=== PATIENT | male | born 1970 | race Caucasian/White ===

== ENCOUNTER → 2023-07-28 06:10 | Outpatient (REF) | payer BC, SELFPAY ==
[2023-07-28 09:43] LABS: ALT (SGPT) 29 U/L (0-50); AST (SGOT) 22 U/L (17-59); Albumin 4.3 g/dl (3.5-5.0); Alkaline Phosphatase 91 U/L (38-126); Blood Urea Nitrogen 12 mg/dl (9-20); Calcium 10.6 mg/dl (8.4-10.2); Carbon Dioxide 24 mmol/L (22-30); Chloride 103 mmol/L (98-107); Glucose 224 mg/dl (70-99); HDL Cholesterol 49 mg/dl; LDL Cholesterol, Calculated 47 mg/dl; Potassium 4.5 mmol/L (3.5-5.1); Sodium 138 mmol/L (135-145); Total Bilirubin 0.8 mg/dl (0.2-1.3); Total Cholesterol 125 mg/dl (50-199); Total Protein 7.8 g/dl (6.3-8.2); Triglyceride 147 mg/dl (10-149); Very Low Density Lipoprotein 29 mg/dl (0-30); eGFR > 60.00
[2023-07-28 09:52] LABS: Intact PTH 109.3 pg/ml (13.6-85.8)
[2023-07-28 11:04] LABS: Microalbumin, Random Urine 6.3 mg/dl (0.6-1.7); Microalbumin/creatinine Ratio 63.9 mg/g
[2023-07-28 13:20] LABS: Glycohemoglobin (HgbA1c) 8.6 % (4.0-5.6)
== END ==
LOC: HWLAB 06:10
PROVIDERS: ATTENDING PHYSICIAN Emergency Medicine
DX: E78.2 Mixed hyperlipidemia (principal); E11.69 Type 2 diabetes mellitus with other specified complication; E66.01 Morbid (severe) obesity due to excess calories; I10 Essential (primary) hypertension; E83.52 Hypercalcemia
CPT/HCPCS: 36415; 80053; 80061; 82043; 82570; 83036; 83970

== ENCOUNTER 2023-09-18 10:34 | Inpatient (IN) | payer BC, SELFPAY ==
[2023-09-17] VITALS (7 sets, daily range): BP systolic 123–148; BP diastolic 61–101; BMI 45.7
--- NOTE | 2023-09-17 07:48 | ED.GENMED ---
History of Present Illness
General
Chief Complaint: Abdominal Pain
Source: patient
Exam Limitations: none
Time Seen by Provider: 09/17/23 07:31
Travel History
Have you had any contact with someone who has COVID-19?: No
Do you have any symptoms of coronavirus? Fever > 100 degrees, chills, cough, shortness of breath, sore throat, loss of taste or smell, muscle aches, or headache?: No
History of Present Illness
History of Present Illness:
52-year-old male loj-[id number] diabetic presents complaining of progressively worsening abdominal discomfort some nausea over the past month. He is on semaglutide. His dose recently increased. He has a history of kidney stones. He also
notes pain in his left groin that is a constant ache. No fever. No chest pain or shortness of breath. He has a continuous glucose monitor hidden and his sugars have been okay lately. He notes weight loss with the semaglutide. No other
complaints at this time
Past History
Past History
ED Past Medical History: Other (Pre Diabetic, Plantar fasciitis, Bone spurs)
ED Past Surgical History: Appendectomy
Social History
Tobacco: Non-smoker
Alcohol: None
Personal:
Living: with family
Phy Exam
Physical Exam
Physical Exam:
General: Obese male no acute respiratory distress nontoxic
HEENT: Normocephalic atraumatic
Heart: Regular rate and rhythm
Lungs: Clear no wheeze
Abdomen soft mildly diffusely tender no guarding rebound normal bowel
Extremities: No cyanosis or edema
Skin: Warm no rash
Course
Orders/Labs/Results
Orders:
Orders
09/17/23 07:48
CT Abd/pelvis W Iv Cont Urgent
Comment:
Reason For Exam: abdominal pain
09/17/23 07:53
CMP [Comprehensive Metabolic Panel] Urgent
Complete Blood Count/With Diff Urgent
Lipase Urgent
09/17/23 07:56
Urinalysis Reflex To Culture Urgent
Date Specimen was Collected: 09/17/23
Time Specimen was Collected: 07:55
Urine Microscopic Reflex Cult Urgent
Urine Culture Urgent
LUIS Source: U
Specimen Description:
Date Specimen was Collected: 09/17/23
Time Specimen was Collected: 07:55
09/17/23 10:44
CefTRIAXone [Rocephin] 1,000 mg IV NOW STA
Abnormal Lab Results
09/17/23 09/17/23
07:53 07:56
Absolute Monos (auto) 0.9 H 10^3/uL
(0.1-0.6)
Lymphocytes % 20.4 L %
(20.5-51.1)
Monocytes % 9.8 H %
(1.7-9.3)
Carbon Dioxide 21 L mmol/L
(22-30)
Glucose 120 H mg/dl
(70-99)
Calcium 10.9 H mg/dl
(8.4-10.2)
Ur Occult Blood Reflex Trace A
(Negative)
Urine Nitrite (Reflex) Positive A
(Negative)
Leukocyte Esterase Rfl 2+ A
(Negative)
Urine WBC (Reflex) 30-40 A /HPF
(0-5)
Urine Bacteria (Reflex) Moderate A
(Negative)
09/17/23 07:53
09/17/23 07:53
Vital Signs
Initial and Last Documented VS:
Initial Vital Signs
Temp Pulse Resp BP Pulse Ox
98.2 F 101 20 148/101 97
09/17/23 07:16 09/17/23 07:16 09/17/23 07:16 09/17/23 07:16 09/17/23 07:16
Last Documented Vital Signs
Temp Pulse Resp BP Pulse Ox
98.2 F 81 16 124/81 98
09/17/23 07:16 09/17/23 09:25 09/17/23 09:25 09/17/23 09:25 09/17/23 09:25
MDM/Problems Addressed
Differential Diagnosis Includes:
Abdominal pain. Consider reaction to medication versus pancreatitis versus reflux
. He also has inguinal and groin pain with some urinary symptoms check UA for urinary tract infection
Check labs. CT with IV contrast pending
*Critical Care Note
Total Time (30-74mins, 75-104mins- exclusive of procedures): Not Applicable
Update Note
Update Note:
CT demonstrates 5 and half millimeter distal ureteral stone on the left side. UA suspicious for urinary tract infection is nitrite positive with large amount of white blood cells and bacteria. Will start on Rocephin. Discussed with urology admit
to medicine
ED Attending Note
-
Portions of this chart may have been created with voice recognition software.� Occasional wrong word or��sound alike� substitutions may have occurred due to the inherent limitations of voice recognition software.
Discharge Plan
Departure
Patient Disposition: Admit
Date of Disposition: 09/17/23
Time of Disposition: 10:47
Admit to: Telemetry
Presentation/result/management discussed w/ accepting MD/DO: Hospitalist
Discharge Problem:
Ureterolithiasis, Acute UTI
Prescriptions:
No Action
metformin 500 MG tablet
500 mg PO BID
atorvastatin 10 MG tablet
10 mg PO QPM
aspirin [Adult Aspirin Regimen] 81 MG tablet,delayed release (DR/EC)
81 mg PO DAILY
metoprolol tartrate 25 MG tablet
25 mg PO DAILY
tamsulosin 0.4 MG capsule
0.4 mg PO DAILY Qty: 5 0RF
ondansetron 4 MG tablet,disintegrating
4 mg PO Q8HPRN PRN (Reason: Nausea/Vomiting) Qty: 10 0RF
levofloxacin 500 MG tablet
500 mg PO DAILY Qty: 6 0RF
oxycodone-acetaminophen 5 MG/325 MG tablet
1 tab PO Q4HPRN PRN (Reason: Pain) Qty: 10 0RF
Referrals:
Patricia Galvez MD [Family Provider] -
Interventions
Interventions:
*Risk Screen - Suicide Last Done: 09/17/23 07:40
*General Assessment Last Done: 09/17/23 07:39
*Neglect/Abuse Screening Last Done: 09/17/23 07:40
ED- Fall Risk Assessment Last Done: 09/17/23 07:57
*ED COVID-19 Vaccine History Last Done: 09/17/23 07:16
TH-Zomktc-Scfanqpvhv Assessment Last Done: 09/17/23 07:40
Discharge Date and Time
Print Language: BELARUSIAN
[2023-09-17 08:12] LABS: Urine Albumin Trace (Neg - Trace); Urine Bilirubin Negative (Negative); Urine Character Very Cloudy (Clear); Urine Color Yellow; Urine Glucose Negative (Negative); Urine Ketone Negative (Negative); Urine Leukocyte 2+ (Negative); Urine Nitrite Positive (Negative); Urine Occult Blood Trace (Negative); Urine Urobilinogen Negative (Neg - 1+)
[2023-09-17 08:18] LABS: % Basophils 0.7 % (0-2); % Eosinophils 1.2 % (0-6); % Immature Granulocytes 0.3 % (0-0.5); % Lymphocytes 20.4 % (20.5-51.1); % Monocytes 9.8 % (1.7-9.3); % Neutrophils 67.6 % (42.2-75.2); Absolute Basophils 0.1 10^3/uL (0-0.2); Absolute Eosinophils 0.1 10^3/uL (0-0.7); Absolute Lymphocytes 1.9 10^3/uL (1.2-3.4); Absolute Monocytes 0.9 10^3/uL (0.1-0.6); Absolute Neutrophils 6.2 10^3/uL (1.4-6.5); Hematocrit 41.9 % (39.0-52.0); Hemoglobin 14.6 g/dL (13.0-18.0); Mean Corp Hgb Conc. 34.8 g/dL (33.0-37.0); Mean Corpuscular Hgb 30.1 pg (27.0-31.0); Mean Corpuscular Volume 86.4 fL (80.0-94.0); Mean Platelet Volume 9.7 fL (7.4-10.4); Nucleated Red Blood Cells % 0 % (-); Platelet Count 292 10^3/uL (130-400); Red Blood Cell Count 4.85 10^6/uL (4.70-6.10); Red Cell Dist. Width 13.6 % (11.5-14.5); White Blood Cell Count 9.2 10^3/uL (4.8-10.8)
[2023-09-17 08:25] LABS: ALT (SGPT) 50 U/L (0-50); AST (SGOT) 28 U/L (17-59); Albumin 4.6 g/dl (3.5-5.0); Alkaline Phosphatase 90 U/L (38-126); Blood Urea Nitrogen 14 mg/dl (9-20); Calcium 10.9 mg/dl (8.4-10.2); Carbon Dioxide 21 mmol/L (22-30); Chloride 106 mmol/L (98-107); Estimated Creatinine Clearance > 125 ml/min; Glucose 120 mg/dl (70-99); Lipase 112 U/L (23-300); Potassium 4.9 mmol/L (3.5-5.1); Sodium 135 mmol/L (135-145); Total Bilirubin 0.7 mg/dl (0.2-1.3); Total Protein 8.1 g/dl (6.3-8.2); eGFR > 60.00
[2023-09-17 08:43] LABS: Urine Bacteria Moderate (Negative); Urine White Cell 30-40 /HPF (0-5)
[2023-09-17 08:44] LABS: Urine Mucus Few; Urine Red Blood Cell 0-2 /HPF (0-2)
[2023-09-17] MEDS: ROCEPHIN 2000 MG IV (11:11)
--- NOTE | 2023-09-17 11:25 | W.PN.URO.CBU ---
Today's Communication / Plan
-
trial of pasage strain urine no mirelaley txs call katrin jovel if fevr or rigors
Assessment / Plan
-
trial of passage and pot at risk fotr sepsis will take to op room in event of fevr v[chills but if just pain will round on t in am and decide about discharge vs stone retrieval and / or watch another day
Diagnosis
-
Date of Service: September 17, 2023
-
Patient Diagnosis:left uvj stone with pain pos notrates in urine but no fevr intermittent pain x 2 weeks
Post Op Day:
Subjective
-
no fevr 1 min chil no rigors no fever
Objective
-
Vital Signs
Temp Pulse Resp BP Pulse Ox
98.2 F 81 16 124/81 98
09/17/23 07:16 09/17/23 09:25 09/17/23 09:25 09/17/23 09:25 09/17/23 09:25
Laboratory Results
09/17/23 07:53
09/17/23 07:53
Review of Systems
-
: Flank Pain and Urgency
Physical Exam
-
General - well developed, well nourished, no acute distress non toxic
Chest - clear bilaterally
Abdomen - soft, non-tender, positive bowel sounds, no CVAT, no incisional pain or distention
Genitalia - normal
Rectal - normal
Skin - warm & dry with no rash
Neuro - AOx3, no motor deficits
Extremities - no clubbing, no cyanosis, no edema
Incision - clean, dry
Dressing - clean, dry, intact
Care Review
Data Reviewed
Discussed with: Nursing and Family
CT Scan: Image Pers Reviewed
--- NOTE | 2023-09-17 12:18 | HPS.HSE ---
Addendum entered and electronically signed by Saulo Cazares MD 09/17/23 13:15:
I saw and examined the patient.
The ANALYSIS SPECIALIST or PA's note was reviewed and I agree with the note.
Comment: Presentation of abdominal discomfort nausea and vomiting for the past week first attributed to his recent increasing dosing of his semaglutide but then developed flank pain and groin pain that was constant and found to have a 5.5 cm
ureteral stone on the left side also infected urine without apparent presentation of sepsis as no fever on presentation stable vitals and within normal white count/obese abdomen with left-sided groin and flank pain on deep palpation. Has not passed
any blood in his urine and does not complain of any pain in urination.
Patient with known history of type 2 diabetes on semaglutide and metformin both which will be held. Will be placed on sliding scale insulin taper. He has a prior history of bilateral PEs sometime ago and had been on a course of warfarin for 2
years but nothing for the last several years he is morbidly obese with a markedly elevated BMI of over 45/CT imaging reviewed with distal left ureteral 5.5 mm stone noted there is incidental note of hepatosplenomegaly and fatty infiltration of the
liver with underlying cholelithiasis also.
Admit to general medical floor
IV fluids
IV ceftriaxone and send urine for culture
Per urology would want to pursue retrieval of stone and stent placement should he develop a febrile course tonight/obtain blood cultures
received a dose of ceftriaxone 2 g which will be continued
-Sliding scale insulin coverage hold metformin and semaglutide
Urology Dr. Heredia aware and seen the patient already
Diet n.p.o. after midnight
Original Note:
Family Physician
-
Family Physician: Patricia Galvez MD
Chief Complaint
-
Koffi pain to left groin
History of Present Illness
52-year-old male complaining of abdominal discomfort with nausea and vomiting over the past week. He states he has history of kidney stones with surgery in the past and notes pain in his left groin with a constant ache he states the pain became
worse with nausea and some dry heaves and he decided to come to the ER for eval. He also reports 1 episode of watery diarrhea yesterday no recent antibiotics or travel. He also notes he is taking semaglutide for diabetes and his sugars have been
stable. It was noted in the ER he had a obstructing 5.5 distal ureteral stone in the left ureter with UA suspicious for UTI. Plan is for IV antibiotics in OR in a.m. unless fever or chills develop throughout the night. He was seen by Dr. Heredia
at bedside. He denies current fever, chills, chest pain, palpitations, shortness breath, cough, diarrhea. He has past medical history of DM2, HTN, HLD
Medical History
Past Medical History
Past Medical History: Reports Other
Additional Past Medical History:
DM2
HTN
HLD
Obesity
Renal calculi
Bilateral pulmonary embolism 2009 at age 38 unprovoked
Sleep apnea noncompliant CPAP
Past Surgical History: Reports Other
Additional Past Surgical History:
Appendectomy
Testicular torsion repair teenager left side
Lithotripsy for renal calculi
Social History
Tobacco: Non-smoker
Alcohol: None
Drug: None
Personal:
Living: With Family ()
Family History
Family History: Other (Mother lung cancer also history HTN, father living history CAD, CA, DM2, obesity, sister living history of fibromyalgia and mental illness)
Allergies / Home Medications
Allergies reflects when Allergies were last updated in [employer].
Home Medications with original date entered in [employer]
Allergy/Medication List:
Allergies
Allergy/AdvReac Type Severity Reaction Status Date / Time
No Known Allergies Allergy Verified 09/17/23 07:17
Home Medications
aspirin 81 mg tablet,delayed release 81 mg PO QPM Blood Clot Prevention/Tx 09/17/23
atorvastatin 10 mg tablet 10 mg PO DAILY High Cholesterol 09/17/23
ibuprofen 200 mg tablet 1,000 mg PO BIDPRN PRN mild pain 09/17/23
metformin 500 mg tablet,extended release 24 hr 1,000 mg PO BID Diabetes 09/17/23
metoprolol succinate 25 mg tablet,extended release 24 hr 12.5 mg PO DAILY Blood Pressure 09/17/23
semaglutide 14 mg tablet (Rybelsus) 14 mg PO DAILY Diabetes 09/17/23
Review of Systems
-
History Source: Patient and Family ( at bedside)
A 12 point ROS was completed and negative except as noted: Yes
Constitutional: Denies Fever or Chills
EENT: Denies Sore Throat or Runny Nose
Respiratory: Denies Cough or Trouble Breathing
Cardiac: Denies Chest Pain, Diaphoresis, Palpitations or Syncope
Abdomen/GI: Reports Abdominal Pain (Left lateral abdomen), Nausea, Vomiting and Diarrhea (X 1 episode); Denies Constipated, Bloody Stools or Black Stools
: Denies Dysuria, Frequency, Flank Pain, Incontinence, Difficulty Voiding, Urgency or Dark Urine
Musculoskeletal: Denies Joint Pain or Edema
Skin: Denies Itching or Rash
Neurological: Denies Dizzy, Headache or Weakness
Endocrine: Reports No Symptoms
Hematologic/Lymphatic: Reports No Symptoms
Psych: Reports Calm
Physical Exam
Vital Signs
Vital Signs
Temp Pulse Resp BP Pulse Ox
98.2 F 81 16 124/81 98
09/17/23 07:16 09/17/23 09:25 09/17/23 09:25 09/17/23 09:25 09/17/23 09:25
Physical Exam
General: Comfortable, Conversant and Morbidly Obese; No Fever or Chills
HEENT: NormoCephalic, Anicteric, Moist mucous membranes, PERRLA, Hyrum Conjunctivae and No Ptosis
Respiratory: Clear; No Wheezes, Rales or Rhonchi
Cardiac: S1/S2 and Regular Rhythm; No Murmur, Rub, Gallop or Peripheral Edema
Breast: Deferred by me
GI: Soft, Non Distended, Normal Bowel Sounds, Tender (Left lateral abdomen) and Other (Protuberant abdomen unable to palpate liver and spleen)
Rectal: Deferred by Provider
Genito-urinary: No costovertebral tender
Musculoskeletal: No Clubbing, No Cyanosis and No Edema
Skin: Warm and Dry; No Rash
Neuro: AO x 3, No Motor Deficits, Nonfocal/grossly intact, Cranial Nerves Intact and No Sensory Deficits; No Slurred Speech, Facial Droop or Tremors
Psych: Calm
Laboratory Results
-
09/17/23 07:53
09/17/23 07:53
Laboratory Results
Total Bilirubin 0.7 mg/dl (0.2-1.3) 09/17/23 07:53
AST 28 U/L (17-59) 09/17/23 07:53
ALT 50 U/L (0-50) 09/17/23 07:53
Alkaline Phosphatase 90 U/L (38-126) 09/17/23 07:53
Lipase 112 U/L (23-300) 09/17/23 07:53
Data Reviewed
-
CT Scan: Report Reviewed by me
Lab Data: Labs Reviewed by me
Impression/Plan
-
impression/Plan:
OBesity Med surg
#Obstructing Left ureteral stone
- Npo after midnight for OR in Am, unless fever develops then urology is to be called
- Iv NSS
-Iv Rocephin 2000mg daily
-IV Zofran, IV Dilaudid as needed
-HOld asa, ibuprofen
-Follow CBC, BMP
#Dm2
- accuchecks with SSI
-Hold metformin
-hold semaglutide last dose was this a.m. he takes oral version 14 mg
#Hld
-cont atorvastatin
#Morbid obesity due to excess calorie consumption�BMI 45.6 kg
Weight loss recommended, patient reports 45 pound weight loss over the past 5 months on current weight loss medication
Patient is currently on semaglutide oral for diabetes and weight loss management
#Hx unprovoked bilateral PEs 2008 at age 38
-Patient was on Coumadin x 2 years he never had hematology evaluation for coagulopathy workup
-I recommended patient follow-up routinely for this coagulopathy panel
#Sleep apnea noncompliant CPAP
Dvt proph
- scd's
Full code
--- NOTE | 2023-09-17 15:30 | EDRN ---
At 1345 I marquis the charge nurse I could not continue with his care as I was involved in a resuscitation. I asked the ED T to obtain the blood cultures. THe oncology coordinator nurse sent repoirt and transferred pt to his in pt room
--- NOTE | 2023-09-17 15:32 | EDRN ---
The admission transfer was done by the RP/ coordinator of rehabilitation services
[2023-09-17] MEDS: NSS 1000 IV (15:35)
[2023-09-17] MEDS: FLUSH (NSS) 1 FLUSH IV (15:37)
[2023-09-17 16:36] LABS: Glucose - Point of Care 90 mg/dl (70-99)
[2023-09-18] VITALS (18 sets, daily range): BP systolic 120–140; BP diastolic 61–91
[2023-09-18] MEDS: NSS 1000 IV ×3 (01:53→21:18)
[2023-09-18 05:47] LABS: Glucose - Point of Care 121 mg/dl (70-99)
[2023-09-18 07:35] LABS: % Basophils 0.7 % (0-2); % Immature Granulocytes 0.2 % (0-0.5); % Lymphocytes 22.8 % (20.5-51.1); % Monocytes 10.1 % (1.7-9.3); % Neutrophils 64.2 % (42.2-75.2); Absolute Eosinophils 0.1 10^3/uL (0-0.7); Absolute Lymphocytes 1.4 10^3/uL (1.2-3.4); Absolute Monocytes 0.6 10^3/uL (0.1-0.6); Absolute Neutrophils 3.9 10^3/uL (1.4-6.5); Hematocrit 39.7 % (39.0-52.0); Hemoglobin 13.6 g/dL (13.0-18.0); Mean Corp Hgb Conc. 34.3 g/dL (33.0-37.0); Mean Corpuscular Hgb 29.9 pg (27.0-31.0); Mean Corpuscular Volume 87.3 fL (80.0-94.0); Mean Platelet Volume 9.8 fL (7.4-10.4); Nucleated Red Blood Cells % 0 % (-); Platelet Count 243 10^3/uL (130-400); Red Blood Cell Count 4.55 10^6/uL (4.70-6.10); Red Cell Dist. Width 13.4 % (11.5-14.5); White Blood Cell Count 6.1 10^3/uL (4.8-10.8)
[2023-09-18 08:02] LABS: ALT (SGPT) 51 U/L (0-50); AST (SGOT) 30 U/L (17-59); Alkaline Phosphatase 82 U/L (38-126); Blood Urea Nitrogen 12 mg/dl (9-20); Calcium 10.2 mg/dl (8.4-10.2); Carbon Dioxide 23 mmol/L (22-30); Chloride 106 mmol/L (98-107); Estimated Creatinine Clearance > 125 ml/min; Glucose 112 mg/dl (70-99); Potassium 4.3 mmol/L (3.5-5.1); Sodium 135 mmol/L (135-145); Total Bilirubin 0.9 mg/dl (0.2-1.3); Total Protein 7.1 g/dl (6.3-8.2); eGFR > 60.00
--- NOTE | 2023-09-18 08:32 | W.PN.URO.CBU ---
Today's Communication / Plan
-
for op room
Assessment / Plan
-
fever chills this am will take to op room possible stenting only if unstable check cxs
Diagnosis
-
Date of Service: September 18, 2023
-
Patient Diagnosis:
Post Op Day:
Patient Diagnosis:left uvj stone with pain pos notrates in urine but no fevr intermittent pain x 2 weeks
Post Op Day:
Subjective
-
fever this am chill
Objective
-
Vital Signs
Temp Pulse Resp BP Pulse Ox
97.9 F 91 18 128/77 97
09/17/23 23:03 09/17/23 23:03 09/17/23 23:03 09/17/23 23:03 09/17/23 23:03
Intake and Output
09/17/23 09/18/23 09/19/23
06:59 06:59 06:59
Intake Total 1200 / 1200
Output Total 1025 / 1025
Balance 175 / 175
Intake:
Oral fluids 0 / 0
IV fluids (Total) 1200 / 1200
Output:
Urine, Voided 1025 / 1025
Laboratory Results
09/18/23 06:53
09/18/23 06:53
Review of Systems
-
Constitutional: Fever and Chills
Physical Exam
-
General - well developed, well nourished, no acute distress
Chest - clear bilaterally
Abdomen - soft, non-tender, positive bowel sounds, no CVAT, no incisional pain or distention
Genitalia - normal
Rectal - normal
Skin - warm & dry with no rash
Neuro - AOx3, no motor deficits
Extremities - no clubbing, no cyanosis, no edema
Incision - clean, dry
Dressing - clean, dry, intact
Care Review
Data Reviewed
Discussed with: Hospitalist and Nursing
CT Scan: Image Pers Reviewed
--- NOTE | 2023-09-18 08:50 | PTOTSP ---
orders received, chart reviewed. per RN, pt is up in room ad svetlana, pt has no acute OT needs. will sign off.
--- NOTE | 2023-09-18 08:53 | PTOTSP ---
Received order for PT from the ED and reviewed chart. S/w RN who reports pt has no PT needs, as he is ambulating independently and is independent with ADL's. Agreed to sign off.
[2023-09-18 08:59] LABS: Glycohemoglobin (HgbA1c) 7.9 % (4.0-5.6)
--- NOTE | 2023-09-18 09:48 | W.PN.HOSP.TC ---
Today's Communication/Plan
-
For ureteroscopic today
Possible transfer to ICU
Continue ceftriaxone at 2 g
Continue IV fluids
Await blood and urine cultures
Scale coverage for blood sugar
Assessment / Plan
Assessment / Plan
52-year-old male complaining of abdominal discomfort with nausea and vomiting over the past week. He states he has history of kidney stones with surgery in the past and notes pain in his left groin with a constant ache he states the pain became
worse with nausea and some dry heaves and he decided to come to the ER for eval. He also reports 1 episode of watery diarrhea yesterday no recent antibiotics or travel. He also notes he is taking semaglutide for diabetes and his sugars have been
stable. It was noted in the ER he had a obstructing 5.5 distal ureteral stone in the left ureter with UA suspicious for UTI. Plan is for IV antibiotics in OR in a.m. unless fever or chills develop throughout the night. He was seen by Dr. Heredia
at bedside. He denies current fever, chills, chest pain, palpitations, shortness breath, cough, diarrhea. He has past medical history of DM2, HTN, HLD
#Obstructing Left ureteral stone
- Npo after midnight for OR in Am, unless fever develops then urology is to be called
- Iv NSS
-Iv Rocephin 2000mg daily
-IV Zofran, IV Dilaudid as needed
-HOld asa, ibuprofen
-Blood culture and urine culture result
-Follow CBC, BMP
#Dm2
- accuchecks with SSI
-Hold metformin
-hold semaglutide last dose was this a.m. he takes oral version 14 mg
#Hld
-cont atorvastatin
#Morbid obesity due to excess calorie consumption�BMI 45.6 kg
Weight loss recommended, patient reports 45 pound weight loss over the past 5 months on current weight loss medication
Patient is currently on semaglutide oral for diabetes and weight loss management
#Hx unprovoked bilateral PEs 2009 at age 38
-Patient was on Coumadin x 2 years he never had hematology evaluation for coagulopathy workup
-I recommended patient follow-up routinely for this coagulopathy panel
#Sleep apnea noncompliant CPAP
Dvt proph
- scd's
Full code
Anticipated Discharge: Within 24 hours
Subjective/Interval History
-
Date of Service: September 18, 2023
Relatively asymptomatic overnight but developed a fever this morning and will be going to the OR for stone retrieval and stent presumptively
Objective Data
-
Labs:
Laboratory Results
09/18/23
06:53
WBC 6.1
Hgb 13.6
Hct 39.7
Plt Count 243
Sodium 135
Potassium 4.3
Chloride 106
Carbon Dioxide 23
BUN 12
Creatinine 0.7
Glucose 112 H
Calcium 10.2
Total Bilirubin 0.9
AST 30
ALT 51 H
Alkaline Phosphatase 82
Vital Signs:
Vital Signs
Temp Pulse Resp BP Pulse Ox
98.2 F 95 16 140/87 97
09/18/23 09:28 09/18/23 09:28 09/18/23 09:28 09/18/23 09:28 09/18/23 09:28
I&O
09/17/23 09/18/23 09/19/23
06:59 06:59 06:59
Intake Total 1200 / 1200
Output Total 1025 / 1025
Balance 175 / 175
Review of Systems
-
All other systems: Not reviewed unless documented
Physical Exam
-
General: Well Developed and Morbidly Obese
HEENT: Normocephalic
Respiratory: Clear to Auscultation
Cardiac: Regular Rhythm
Genito-urinary: No Costovertebral Tender
Skin: Warm
Psych: Calm
Data Reviewed
-
Total Time Spent with Patient (in minutes): 567
Medical Tests (Nuc Med, Echo etc): Report Reviewed by me
Labs: Labs Reviewed by me (No leukocytosis/renal status is stable/blood sugar 112/glycohemoglobin however elevated at 7.9)
[2023-09-18 10:43] LABS: Glucose - Point of Care 109 mg/dl (70-99)
[2023-09-18] MEDS: STERILE WATER FOR INJECTION IV (11:00)
--- NOTE | 2023-09-18 11:23 | W.IMMPOSTOP ---
Surgical Immed Post Op Note
-
Primary Surgeon:
kalani
Assisting Surgeon:
Pre-op Diagnosis:
left ureteral stone
Post-op Diagnosis:
same
Procedure Performed:
cysto/left ureteroscopy/laser litho and stent
Anesthesia Type:
gen
Specimen / Cultures:
stone
Estimated Blood Loss:
2cc
Complications:
none
Operative Findings:
no obvious evid of infx
stone fragement and removed/stent placed
observe overnight for fevers- cx f/u
[2023-09-18 11:54] LABS: Glucose - Point of Care 105 mg/dl (70-99)
[2023-09-18] MEDS: ROCEPHIN IV (12:56)
[2023-09-18] MEDS: FLOMAX 0.400000000000000022 MG PO (13:13)
--- NOTE | 2023-09-18 13:28 | SUR.PHASEI ---
Report to [facility] for lunch relief. Lori aMta RN BSN.
--- NOTE | 2023-09-18 14:39 | PTCARENOTE ---
Pt arrived to [facility] from PACU s/p L ureteral stent placement, stone extraction, sunil lithotripsy. Pt IVF infusing, pt states mild pain at this time. Pt oriented to call tang and room, bed locked and in lowest position, call tang within reach.
[2023-09-18] MEDS: TYLENOL 650 MG PO ×2 (15:39→23:06)
[2023-09-18] MEDS: Pyridium 100 MG PO ×2 (15:39→23:06)
[2023-09-18 16:04] LABS: Glucose - Point of Care 164 mg/dl (70-99)
[2023-09-18] MEDS: NOVOLOG FLEXPEN-LOW RESISTANCE 1 UNITS SC (16:38)
[2023-09-18 21:20] LABS: Glucose - Point of Care 139 mg/dl (70-99)
[2023-09-19 07:12] LABS: Hematocrit 39.6 % (39.0-52.0); Hemoglobin 13.3 g/dL (13.0-18.0); Mean Corp Hgb Conc. 33.6 g/dL (33.0-37.0); Mean Corpuscular Hgb 29.9 pg (27.0-31.0); Mean Platelet Volume 9.8 fL (7.4-10.4); Platelet Count 221 10^3/uL (130-400); Red Blood Cell Count 4.45 10^6/uL (4.70-6.10); Red Cell Dist. Width 13.2 % (11.5-14.5)
[2023-09-19 07:12] LABS: Glucose - Point of Care 113 mg/dl (70-99)
[2023-09-19 07:30] LABS: Blood Urea Nitrogen 11 mg/dl (9-20); Calcium 9.8 mg/dl (8.4-10.2); Carbon Dioxide 21 mmol/L (22-30); Chloride 109 mmol/L (98-107); Estimated Creatinine Clearance > 125 ml/min; Glucose 113 mg/dl (70-99); Potassium 4.2 mmol/L (3.5-5.1); Sodium 135 mmol/L (135-145); eGFR > 60.00
--- NOTE | 2023-09-19 07:33 | W.DS.TRANS ---
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
-
Discharge Instructions:
Discharge Diagnosis/Procedures Obstructing left ureteral stone
Urinary tract infection
Type 2 diabetes mellitus
Diet No restrictions
Activity No restrictions
Driving Restrictions As prior to admission
Instructions:
Stand-Alone Forms:
Changes to Home Medications: Yes
Discharge Medications:
DC Medications w/original date entered in [employer]
aspirin 81 mg tablet,delayed release 81 mg PO QPM Blood Clot Prevention/Tx 09/17/23
atorvastatin 10 mg tablet 10 mg PO DAILY High Cholesterol 09/17/23
ibuprofen 200 mg tablet 1,000 mg PO BIDPRN PRN mild pain 09/17/23
metformin 500 mg tablet,extended release 24 hr 1,000 mg PO BID Diabetes 09/17/23
metoprolol succinate 25 mg tablet,extended release 24 hr 12.5 mg PO DAILY Blood Pressure 09/17/23
semaglutide 14 mg tablet (Rybelsus) 14 mg PO DAILY Diabetes 09/17/23
cefdinir 300 mg capsule 300 mg PO BID #10 caps 09/19/23
phenazopyridine 100 mg tablet 100 mg PO Q8 Muscle spasms #10 tabs 09/19/23
tamsulosin 0.4 mg capsule 0.4 mg PO DAILY Urinary issue #30 caps 09/19/23
Home Medication Changes
cefdinir 300 mg capsule 300 mg PO BID #10 caps 09/19/23
phenazopyridine 100 mg tablet 100 mg PO Q8 Muscle spasms #10 tabs 09/19/23
tamsulosin 0.4 mg capsule 0.4 mg PO DAILY Urinary issue #30 caps 09/19/23
Pending Results: No
Total time spent discharging patient (in min): 38
[2023-09-19 07:44] VITALS: BP 126/78
[2023-09-19] MEDS: FLOMAX 0.400000000000000022 MG PO (08:15)
[2023-09-19] MEDS: Pyridium 100 MG PO (08:15)
[2023-09-19] MEDS: NOVOLOG FLEXPEN-LOW RESISTANCE SC (08:16)
--- NOTE | 2023-09-19 10:41 | CM ---
CM following re: discharge planning./
Reviewed pt's chart, met with pt.
Pt is a 52 year old male, admitted with Left ureteral stone.
Pt reports he lives with spouse in an apartment, no steps, has no children. 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
PCP: Patricia Sanchez
Pharmacy: [facility]
Discharge order noted. Pt is aware, expressed his agreement and he stated his spouse will transport home. Pt has no after care VN needs.
D/C plan: home no needs. Spouse to transport
--- NOTE | 2023-09-19 11:01 | W.DCSUMMARY ---
Discharge Summary
Discharge Data
Date of Admission: 09/18/23
Date of Discharge: 09/19/23
-
Pending Results: No
Hospital Course
Patient is a 52-year-old male admitted on 16 September discharge date will be 19 September presented with 2 weeks of intermittent flank pain and abdominal pain and found to have a left UVJ stone of 5.5 mm/ he has a longstanding history of nephrolithiasis and
documented bilateral stones and followed by urology may have had also some chills in association last 24 hours he then developed left lower quadrant pain and an increase in severity bring himself to the ER his urinalysis was positive for nitrates
and bacteria also longstanding medical history includes type 2 diabetes mellitus more weak generally controlled with semaglutide which was held at time of presentation
Sliding scale coverage in addition to the medical floor by the hospitalist service with urologic consultation.. He was placed on empiric antibiotic coverage with ceftriaxone. Urine culture subsequently grew out gram-negative bacilli species which
is still pending at time of discharge.
Patient was watched overnight to see if he would develop a febrile course which he infected and he was taken to the OR for ureteroscopic stone retrieval lithotripsy and stent placement which was successful
He was monitored overnight and has not suffered a febrile course nor significant leukocytosis and he has had symptomatic relief
Discharge plan will be to place him on tamsulosin 0.4 mg along with Pyridium as needed for bladder spasms and stent pain. Will await urologic evaluation this morning prior to his discharge/he will need further follow-up with urology for stent
removal and also in regards to addressing his multiple stone history and preventative management. He was given a prescription for cefdinir 300 mg twice a day for the next 5 days.
Discharge Plan
-
Patient Disposition: Home (Routine Discharge)
Discharge Diagnosis/Procedures: Obstructing left ureteral stone
Urinary tract infection
Type 2 diabetes mellitus
Diet: No restrictions
Activity: No restrictions
Driving Restrictions: As prior to admission
Referrals:
Patricia Galvez MD [Family Provider] -
Mckinley Heredia MD [Active] - (YOU HAVE A STENT THE STONE IS GONE YOU DO HAVE SEBVEAL 3 AND 4 MM STONES IN EACH [facility] [phone] FOR EARLE NAYLOR OR PENNY TO SET UP STENT REMOVAL ALSO NEED SEPARATE APPT DR VANEGAS TO DISCUSS
TX FOR REMAINING STONES AND PREVENTION)
Prescriptions:
New
tamsulosin 0.4 mg Capsule
0.4 mg PO DAILY Qty: 30 0RF
phenazopyridine 100 mg Tablet
100 mg PO Q8 Qty: 10 0RF
cefdinir 300 mg capsule
300 mg PO BID Qty: 10 0RF
Continued
atorvastatin 10 mg Tablet
10 mg PO DAILY
aspirin 81 mg Tablet,Delayed Release (Dr/Ec)
81 mg PO QPM
ibuprofen 200 mg Tablet
1,000 mg PO BIDPRN PRN (Reason: mild pain)
metoprolol succinate 25 mg Tablet Extended Release 24 Hr
12.5 mg PO DAILY
metformin 500 mg Tablet Extended Release 24 Hr
1,000 mg PO BID
Rybelsus 14 mg Tablet
14 mg PO DAILY
Discharge Orders:
Discharge Patient (As Directed); Ordered 09/19/23
Ordered By: Saulo Cazares
Discharge Date and Time
Print Language: IRISH
--- NOTE | 2023-09-19 11:25 | W.PN.URO.CBU ---
Today's Communication / Plan
-
home
Assessment / Plan
-
stable post op coursew non toxic home today
Diagnosis
-
Date of Service: September 19, 2023
-
Patient Diagnosis:
Post Op Day:
Patient Diagnosis:
Post Op Day:
Patient Diagnosis:left uvj stone with pain pos notrates in urine but no fevr intermittent pain x 2 weeks
Post Op Day:
Subjective
-
feels better some stent discomfort
Objective
-
Vital Signs
Temp Pulse Resp BP Pulse Ox
98.2 F 78 14 126/78 100
09/19/23 07:44 09/19/23 07:44 09/19/23 07:44 09/19/23 07:44 09/19/23 07:44
Intake and Output
09/18/23 09/19/23 09/20/23
06:59 06:59 06:59
Intake Total 1200 / 1200 575 / 575 1200 / 1200
Output Total 1025 / 1025
Balance 175 / 175 575 / 575 1200 / 1200
Intake:
Oral fluids 0 / 0 225 / 225
IV fluids (Total) 1200 / 1200 350 / 350 1200 / 1200
Nss 1,000 ml @ 100 mls/hr IV . 150 / 150
Q10H DONNA Rx#:[id number]
norm 200 / 200
Output:
Urine, Voided 1025 / 1025
Other:
Number of approximated MODERATE 2
amounts of urine
Laboratory Results
09/19/23 06:27
09/19/23 06:27
Review of Systems
-
: Dysuria, Frequency and Dark Urine
Physical Exam
-
General - well developed, well nourished, no acute distress
Chest - clear bilaterally
Abdomen - soft, non-tender, positive bowel sounds, no CVAT, no incisional pain or distention
Genitalia - normal
Rectal - normal
Skin - warm & dry with no rash
Neuro - AOx3, no motor deficits
Extremities - no clubbing, no cyanosis, no edema
Incision - clean, dry
Dressing - clean, dry, intact
Care Review
Data Reviewed
Discussed with: Hospitalist, Nursing and Family
[2023-09-19] MEDS: STERILE WATER FOR INJECTION 20 ML IV (11:29)
[2023-09-19] MEDS: ROCEPHIN 2000 MG IV (11:29)
--- NOTE | 2023-09-19 11:40 | PTCARENOTE ---
Patient discharged to home with fiance. All discharge instructions and medications reviewed. Left with all belongings.
[2023-09-21 22:09] LABS: Stone Analysis Mass 153 mg
== END 2023-09-19 11:40 | disposition home or self-care (01) | DRG 660 ==
LOC: 2 SOUTH 10:34
PROVIDERS: Clinical Nurse Specialist Family Health; Physician Assistant; Specialist; ADMITTING PHYSICIAN Internal Medicine; CONSULT PHYSICIAN Specialist; EMERGENCY PHYSICIAN Emergency Medicine; FAMILY PHYSICIAN Emergency Medicine
PROC: 0TC78ZZ Extirpation of Matter from Left Ureter, Via Natural or Artificial Opening Endoscopic (ICD-10-PCS; 2023-09-18)
PROC: 0T778DZ Dilation of Left Ureter with Intraluminal Device, Via Natural or Artificial Opening Endoscopic (ICD-10-PCS; 2023-09-18)
DX: N20.2 Calculus of kidney with calculus of ureter (principal); N39.0 Urinary tract infection, site not specified; Z68.42 Body mass index [BMI] 45.0-49.9, adult; E11.9 Type 2 diabetes mellitus without complications; K76.0 Fatty (change of) liver, not elsewhere classified; E66.01 Morbid (severe) obesity due to excess calories; G47.30 Sleep apnea, unspecified; I10 Essential (primary) hypertension; E78.5 Hyperlipidemia, unspecified; Z86.711 Personal history of pulmonary embolism; Z91.199 Patient's noncompliance with other medical treatment and regimen due to unspecified reason; Z82.49 Family history of ischemic heart disease and other diseases of the circulatory system; Z80.1 Family history of malignant neoplasm of trachea, bronchus and lung; Z83.3 Family history of diabetes mellitus; Z87.442 Personal history of urinary calculi; Z79.85 Long-term (current) use of injectable non-insulin antidiabetic drugs; Z79.84 Long term (current) use of oral hypoglycemic drugs; Z79.82 Long term (current) use of aspirin
CPT/HCPCS: 74018; 74177; 76000; 80048; 80053; 81003; 81015; 82365; 82962; 83036; 83690; 85025; 85027; 87040; 87077; 87086; 87186; 96374; 99285; C2617; Q9967

== ENCOUNTER 2023-09-22 09:49 | Emergency (ER) | payer BC, SELFPAY ==
[2023-09-22 09:51] VITALS: BP 127/97
--- NOTE | 2023-09-22 10:07 | ED.GENMED ---
History of Present Illness
General
Chief Complaint: Abdominal Pain
Source: patient
Exam Limitations: none
Time Seen by Provider: 09/22/23 09:57
Travel History
Have you had any contact with someone who has COVID-19?: No
Do you have any symptoms of coronavirus? Fever > 100 degrees, chills, cough, shortness of breath, sore throat, loss of taste or smell, muscle aches, or headache?: No
History of Present Illness
History of Present Illness:
See MDM
Past History
Past History
ED Past Medical History: Other (Pre Diabetic, Plantar fasciitis, Bone spurs)
ED Past Surgical History: Appendectomy
Social History
Tobacco: Non-smoker
Alcohol: None
Personal:
Living: with family
Phy Exam
Physical Exam
Physical Exam:
See MDM
Course
Orders/Labs/Results
Orders:
Orders
09/22/23 10:05
CT Abd/pel Without Iv Or Oral Urgent
Comment: recent stent and lithotripsy
Reason For Exam: left flank pain
Ketorolac [Toradol] 30 mg IV NOW STA
Morphine Sulfate 4 mg IV NOW STA
Ondansetron Injectable [Zofran] 4 mg IV NOW STA
09/22/23 10:12
Complete Blood Count/With Diff Urgent
Comprehensive Metabolic Panel Urgent
09/22/23 12:01
Oxycodone/Acetaminophen [Percocet 5/325] 1 tablet PO NOW STA
Abnormal Lab Results
09/22/23
10:12
Absolute Neuts (auto) 8.0 H 10^3/uL
(1.4-6.5)
Absolute Monos (auto) 0.7 H 10^3/uL
(0.1-0.6)
Neutrophils % 76.3 H %
(42.2-75.2)
Lymphocytes % 15.1 L %
(20.5-51.1)
Carbon Dioxide 20 L mmol/L
(22-30)
Glucose 136 H mg/dl
(70-99)
Calcium 11.8 H mg/dl
(8.4-10.2)
ALT 53 H U/L
(0-50)
Total Protein 8.6 H g/dl
(6.3-8.2)
09/22/23 10:12
09/22/23 10:12
Vital Signs
Initial and Last Documented VS:
Initial Vital Signs
Temp Pulse Resp BP Pulse Ox
98.3 F 127 22 127/97 98
09/22/23 09:51 09/22/23 09:51 09/22/23 09:51 09/22/23 09:51 09/22/23 09:51
Last Documented Vital Signs
Temp Pulse Resp BP Pulse Ox
98.3 F 127 22 127/97 98
09/22/23 09:51 09/22/23 09:51 09/22/23 09:51 09/22/23 09:51 09/22/23 09:51
MDM/Problems Addressed
Differential Diagnosis Includes:
HPI and MDM Narrative:
52-year-old male presenting with left lower quadrant pain. Patient was recently admitted and he had left-sided kidney stone. Patient had a stent placed and is currently on antibiotics. Patient noticed that the pain was getting worse this morning.
He complains of nausea and left lower quadrant pain
He is uncomfortable on exam. Discussed likelihood of movement stone pieces. Will obtain CT to ensure no bladder or urethral injury or malposition of stent
Physical exam
General: Uncomfortable
HEENT: protecting airway
Neck: appears supple
CV: No evidence of cyanosis
Resp: No accessory muscle use
Abd: Non-distended. Left lower quadrant tenderness
Extremities: No deformities
Neuro: alert
Psych: Normal affect
Skin: Intact
Problems Addressed including Acute and Chronic Conditions affecting care:
1. Left flank pain
Acuity: acute
Prognosis: stable
Details: Likely in the setting of ureteral stent and recent kidney stone lithotripsy. Will obtain CT looking for stent malposition
Updates
CT negative for acute pathology. We discussed that his pain could be stent related. Ibuprofen is not home is not helping. Will write short course of oxycodone and discussed keeping his appointment with urology
Differential Diagnosis (but not limited to): Ureteral stent malposition, kidney stone, ureteral injury
Testing considered: Urinalysis but patient currently on antibiotics
Drug therapy (if applicable): OTC meds, please see d/c instruction regarding Rx drugs
Amount and/or Complexity of Data Reviewed
Clinical info obtained from: Patient
External data reviewed: N/A
Labs I independently reviewed (but not limited to): White blood cell count within normal
Radiology: The CT scan was personally and independently reviewed. In addition, official CT report reviewed.
Pulse Ox: not hypoxic
EKG independently reviewed: N/A
Gum Remover: N/A
Critical Care: N/A
Risk of Complication:
Social Determinants of health: Good social support
Discussed with other providers: N/A
Escalation of Care includes Admit/Obs: After being observed in the Emergency Department, pt stable for discharge.
Occasional wrong word or 'sound a like' substitutions may have occurred due to the inherent limitations of voice recognition software. Read the chart carefully and recognize, using context, where substitutions have occurred.
*Critical Care Note
Total Time (30-74mins, 75-104mins- exclusive of procedures): Not Applicable
ED Attending Note
-
Portions of this chart may have been created with voice recognition software.� Occasional wrong word or��sound alike� substitutions may have occurred due to the inherent limitations of voice recognition software.
Discharge Plan
Departure
Patient Disposition: Home (Routine Discharge)
Date of Disposition: 09/22/23
Time of Disposition: 12:03
Patient with high blood pressure during this ER visit?: No
Discharge Problem:
Acute flank pain
Instructions: Kidney Stones (DC)
Prescriptions:
New
oxycodone 5 mg tablet
5 mg PO Q8H PRN (Reason: Pain) Qty: 14 0RF
No Action
atorvastatin 10 mg Tablet
10 mg PO DAILY
aspirin 81 mg Tablet,Delayed Release (Dr/Ec)
81 mg PO QPM
ibuprofen 200 mg Tablet
1,000 mg PO BIDPRN PRN (Reason: mild pain)
metoprolol succinate 25 mg Tablet Extended Release 24 Hr
12.5 mg PO DAILY
metformin 500 mg Tablet Extended Release 24 Hr
1,000 mg PO BID
Rybelsus 14 mg Tablet
14 mg PO DAILY
tamsulosin 0.4 mg Capsule
0.4 mg PO DAILY Qty: 30 0RF
phenazopyridine 100 mg Tablet
100 mg PO Q8 Qty: 10 0RF
cefdinir 300 mg capsule
300 mg PO BID Qty: 10 0RF
Referrals:
Patricia Galvez MD [Family Provider] -
Activity Restrictions/Additional Instructions:
Please return for any worsening symptoms.
You may return at any time if you have further concerns.
Please keep your urology follow-up.
You were given a prescription for narcotics. If you require this pain medicine, please take a daily [id number] stool softener to avoid constipation.
Thank you for choosing [facility].
Interventions
Interventions:
*Risk Screen - Suicide Last Done: 09/22/23 09:51
*General Assessment Last Done: 09/22/23 09:51
*Neglect/Abuse Screening Last Done: 09/22/23 09:51
Discharge Date and Time
Print Language: GUAMANIAN
[2023-09-22] MEDS: MORPHINE SULFATE 4 MG IV (10:19)
[2023-09-22] MEDS: ZOFRAN 4 MG IV (10:19)
[2023-09-22] MEDS: TORADOL 30 MG IV (10:19)
[2023-09-22 10:24] LABS: % Basophils 0.7 % (0-2); % Eosinophils 0.6 % (0-6); % Immature Granulocytes 0.4 % (0-0.5); % Lymphocytes 15.1 % (20.5-51.1); % Monocytes 6.9 % (1.7-9.3); % Neutrophils 76.3 % (42.2-75.2); Absolute Basophils 0.1 10^3/uL (0-0.2); Absolute Eosinophils 0.1 10^3/uL (0-0.7); Absolute Lymphocytes 1.6 10^3/uL (1.2-3.4); Absolute Monocytes 0.7 10^3/uL (0.1-0.6); Hematocrit 42.3 % (39.0-52.0); Mean Corp Hgb Conc. 35.5 g/dL (33.0-37.0); Mean Corpuscular Hgb 30.1 pg (27.0-31.0); Mean Corpuscular Volume 84.8 fL (80.0-94.0); Mean Platelet Volume 9.5 fL (7.4-10.4); Nucleated Red Blood Cells % 0 % (-); Platelet Count 317 10^3/uL (130-400); Red Blood Cell Count 4.99 10^6/uL (4.70-6.10); Red Cell Dist. Width 13.3 % (11.5-14.5); White Blood Cell Count 10.4 10^3/uL (4.8-10.8)
[2023-09-22 10:38] LABS: ALT (SGPT) 53 U/L (0-50); AST (SGOT) 29 U/L (17-59); Albumin 4.9 g/dl (3.5-5.0); Alkaline Phosphatase 98 U/L (38-126); Blood Urea Nitrogen 11 mg/dl (9-20); Calcium 11.8 mg/dl (8.4-10.2); Carbon Dioxide 20 mmol/L (22-30); Chloride 106 mmol/L (98-107); Glucose 136 mg/dl (70-99); Potassium 4.7 mmol/L (3.5-5.1); Sodium 136 mmol/L (135-145); Total Protein 8.6 g/dl (6.3-8.2); eGFR > 60.00
[2023-09-22 11:43] VITALS: BMI 45.2
[2023-09-22] MEDS: PERCOCET 5/325 1 TABLET PO (12:04)
== END 2023-09-22 12:32 | disposition home or self-care (01) ==
LOC: EMR 09:49
PROVIDERS: EMERGENCY PHYSICIAN Student in an Organized Health Care Education/Training Program; FAMILY PHYSICIAN Emergency Medicine
DX: R10.9 Unspecified abdominal pain (principal); R73.03 Prediabetes; Z87.442 Personal history of urinary calculi; Z90.49 Acquired absence of other specified parts of digestive tract
CPT/HCPCS: 99284; 96374; 96375; 74176; 80053; 85025

== ENCOUNTER → 2023-11-30 06:07 | Outpatient (REF) | payer BC, SELFPAY ==
[2023-11-30 10:35] LABS: ALT (SGPT) 33 U/L (0-50); AST (SGOT) 24 U/L (17-59); Albumin 4.5 g/dl (3.5-5.0); Alkaline Phosphatase 87 U/L (38-126); Blood Urea Nitrogen 11 mg/dl (9-20); Calcium 10.8 mg/dl (8.4-10.2); Carbon Dioxide 23 mmol/L (22-30); Chloride 105 mmol/L (98-107); Glucose 137 mg/dl (70-99); HDL Cholesterol 55 mg/dl; LDL Cholesterol, Calculated 48 mg/dl; Potassium 4.9 mmol/L (3.5-5.1); Sodium 138 mmol/L (135-145); Total Bilirubin 0.6 mg/dl (0.2-1.3); Total Cholesterol 125 mg/dl (50-199); Total Protein 7.6 g/dl (6.3-8.2); Triglyceride 113 mg/dl (10-149); Very Low Density Lipoprotein 22 mg/dl (0-30); eGFR > 60.00
[2023-11-30 11:01] LABS: Glycohemoglobin (HgbA1c) 7.1 % (4.0-5.6)
== END ==
LOC: HWLAB 06:07
PROVIDERS: ATTENDING PHYSICIAN Emergency Medicine; REFERRING PHYSICIAN Physician Assistant
DX: E11.69 Type 2 diabetes mellitus with other specified complication (principal); E11.65 Type 2 diabetes mellitus with hyperglycemia; E78.2 Mixed hyperlipidemia
CPT/HCPCS: 36415; 80053; 80061; 83036

== ENCOUNTER → 2023-12-05 08:34 | Outpatient (REF) | payer BC, SELFPAY ==
[2023-12-05 09:40] LABS: Urine Albumin Negative (Neg - Trace); Urine Bilirubin Negative (Negative); Urine Character Clear (Clear); Urine Color Yellow; Urine Glucose Negative (Negative); Urine Ketone Negative (Negative); Urine Leukocyte Trace (Negative); Urine Nitrite Negative (Negative); Urine Occult Blood 3+ (Negative); Urine Urobilinogen Negative (Neg - 1+)
[2023-12-05 09:57] LABS: Urine Bacteria Few (Negative); Urine White Cell 0-2 /HPF (0-5)
== END ==
LOC: REG 08:34
PROVIDERS: ATTENDING PHYSICIAN Specialist; FAMILY PHYSICIAN Emergency Medicine
DX: N20.0 Calculus of kidney (principal)
CPT/HCPCS: 81003; 81015; 87086

== ENCOUNTER → 2023-12-24 07:04 | Outpatient (REF) | payer BC, SELFPAY | LOC: HWRAD 07:04 | PROVIDERS: ATTENDING PHYSICIAN Physician Assistant; FAMILY PHYSICIAN Emergency Medicine | DX: E34.9 Endocrine disorder, unspecified (principal); E83.52 Hypercalcemia | CPT/HCPCS: 77080; 77081 ==

== ENCOUNTER → 2024-01-16 09:36 | Outpatient (REF) | payer BC, SELFPAY ==
[2024-01-16 10:19] LABS: Ionized Calcium 1.33 mMOL/L (1.15-1.33)
[2024-01-16 10:54] LABS: ALT (SGPT) 31 U/L (0-50); AST (SGOT) 25 U/L (17-59); Albumin 4.4 g/dl (3.5-5.0); Alkaline Phosphatase 85 U/L (38-126); Blood Urea Nitrogen 13 mg/dl (9-20); Calcium 10.7 mg/dl (8.4-10.2); Carbon Dioxide 25 mmol/L (22-30); Chloride 105 mmol/L (98-107); Glucose 110 mg/dl (70-99); Potassium 4.5 mmol/L (3.5-5.1); Sodium 139 mmol/L (135-145); Total Bilirubin 0.8 mg/dl (0.2-1.3); Total Protein 7.4 g/dl (6.3-8.2); eGFR > 60.00
[2024-01-16 11:10] LABS: Vitamin D, 25-OH*** 23.5 ng/mL (30-80)
[2024-01-16 11:23] LABS: TSH 1.36 uIU/ml (0.47-4.68)
[2024-01-16 11:38] LABS: Intact PTH 119.1 pg/ml (13.6-85.8)
== END ==
LOC: REG 09:36
PROVIDERS: ATTENDING PHYSICIAN Physician Assistant; FAMILY PHYSICIAN Emergency Medicine; OTHER PHYSICIAN Internal Medicine Cardiovascular Disease
DX: E83.52 Hypercalcemia (principal); E34.9 Endocrine disorder, unspecified; E55.9 Vitamin D deficiency, unspecified
CPT/HCPCS: 36415; 80053; 82306; 82330; 83970; 84443

== ENCOUNTER → 2024-01-20 08:54 | Outpatient (REF) | payer BC, SELFPAY | LOC: RAD 08:54 | PROVIDERS: ATTENDING PHYSICIAN Physician Assistant; FAMILY PHYSICIAN Emergency Medicine | DX: E83.52 Hypercalcemia (principal); E34.9 Endocrine disorder, unspecified | CPT/HCPCS: 76536; 78071; A9500 ==

== ENCOUNTER 2024-02-24 17:37 | Inpatient (IN) | payer BC, SELFPAY ==
[2024-02-24 10:59] VITALS: BP 143/103
--- NOTE | 2024-02-24 11:14 | ED.GENMED ---
History of Present Illness
General
Chief Complaint: Flank Pain
Source: patient
Time Seen by Provider: 02/24/24 11:06
History of Present Illness
History of Present Illness:
53yoM with a history of kidney stones, type 2 diabetes, hypertension, hyperlipidemia, and obesity presenting with his for evaluation of flank pain. Patient started with R flank pain last night which was initially mild. He thought he was passing
a small kidney stone but pain acutely worsened this morning while at work. He is also having nausea and had two episodes of vomiting yesterday. He feels warm but denies any fevers. No dysuria or hematuria. Symptoms are identical to his previous
kidney stones.
Past History
Past History
ED Past Medical History: Other (Pre Diabetic, Plantar fasciitis, Bone spurs)
ED Past Surgical History: Appendectomy
Social History
Tobacco: Non-smoker
Alcohol: None
Personal:
Living: with family
Phy Exam
Physical Exam
Physical Exam:
Appears uncomfortable, non-toxic
General Physical Exam
General Presentation: well appearing
General age: appears stated age
General Skin: warm and dry
General Habitus: normal
General Mental: alert
ENT Exam
ENT Exam: normocephalic
Pulmonary Exam
Pulmonary Exam: no respiratory distress
Gastrointestinal Exam
Gastrointestinal Exam: non tender, soft, non distended and no cva tenderness
[place] Coma Scale
Eye Opening: Spontaneous
Verbal Response: Oriented
Motor Response: Obeys Commands
GCS Total Score: 15
Skin Exam
Skin Exam: normal color and warm/dry
Psychiatric Exam
Psychiatric Exam: normal mood/affect
Course
Orders/Labs/Results
Orders:
Orders
02/24/24 11:14
CT Abd/pel Without Iv Or Oral Urgent
Comment:
Reason For Exam: R flank pain
0.9% Sodium Chloride 1000 ml [Nss] 1,000 ml IV BOLUS
HYDROmorphone [Dilaudid] 1 mg IV NOW STA
Ketorolac [Toradol] 15 mg IV NOW STA
Ondansetron Injectable [Zofran] 4 mg IV NOW STA
02/24/24 11:24
Complete Blood Count/With Diff Urgent
Comprehensive Metabolic Panel Urgent
Lipase Urgent
02/24/24 14:12
Urinalysis Reflex To Culture Urgent
Date Specimen was Collected: 02/24/24
Time Specimen was Collected: 14:08
Urine Microscopic Reflex Cult Urgent
Urine Culture Urgent
LUIS Source: U
Specimen Description:
Date Specimen was Collected: 02/24/24
Time Specimen was Collected: 14:08
02/24/24 16:04
CefTRIAXone [Rocephin] 2,000 mg IV NOW STA
Tamsulosin [Flomax] 0.4 mg PO NOW STA
Abnormal Lab Results
02/24/24 02/24/24
11:24 14:12
WBC 12.3 H 10^3/uL
(4.8-10.8)
Abs Immat Gran (auto) 0.1 H 10^3/uL
(0-0.05)
Absolute Neuts (auto) 9.1 H 10^3/uL
(1.4-6.5)
Absolute Monos (auto) 1.3 H 10^3/uL
(0.1-0.6)
Lymphocytes % 14.6 L %
(20.5-51.1)
Monocytes % 10.1 H %
(1.7-9.3)
Glucose 157 H mg/dl
(70-99)
Calcium 11.9 H mg/dl
(8.4-10.2)
Ur Occult Blood Reflex 3+ A
(Negative)
Urine Nitrite (Reflex) Positive A
(Negative)
Leukocyte Esterase Rfl 2+ A
(Negative)
Urine RBC 7-10 A /HPF
(0-2)
Urine WBC (Reflex) >100 A /HPF
(0-5)
Urine Bacteria (Reflex) Many A
(Negative)
Urine Albumin (Reflex) 1+ A
(Neg - Trace)
02/24/24 11:24
02/24/24 11:24
Vital Signs
Initial and Last Documented VS:
Initial Vital Signs
Temp Pulse Resp BP Pulse Ox
98.3 F 100 20 143/103 95
02/24/24 10:59 02/24/24 10:59 02/24/24 10:59 02/24/24 10:59 02/24/24 10:59
Last Documented Vital Signs
Temp Pulse Resp BP Pulse Ox
98.2 F 91 18 156/90 98
02/24/24 14:10 02/24/24 14:10 02/24/24 14:10 02/24/24 14:10 02/24/24 14:10
MDM/Problems Addressed
Differential Diagnosis Includes:
53yoM here with R flank pain x 1 day. Associated with n/v. Hx of kidney stones and this feels the same. VSS. He appears uncomfortable but is non-toxic. No abdominal or CVA tenderness on exam. Differential diagnosis includes but is not limited to:
kidney stone, UTI, pyelonephritis, doubt but consider AAA
Initial ED plan: Check CBC, CMP, UA, and CT abdomen. IV Dilaudid, Toradol, Zofran, and fluid bolus for symptoms.
*Critical Care Note
Total Time (30-74mins, 75-104mins- exclusive of procedures): Not Applicable
Update Note
Update Note:
CT shows an obstructing R renal stone. UA is nitrite positive with 2+ leukocytes. WBC 12.3. Case was discussed with urology. Plan for stent placement tomorrow. IV Rocephin ordered and he was admitted for further management.
ED Attending Note
-
Portions of this chart may have been created with voice recognition software.� Occasional wrong word or��sound alike� substitutions may have occurred due to the inherent limitations of voice recognition software.
Discharge Plan
Departure
Patient Disposition: Admit
Date of Disposition: 02/24/24
Time of Disposition: 16:28
Presentation/result/management discussed w/ accepting MD/DO: Hospitalist
Discharge Problem:
Urinary tract infection, Right renal stone
Prescriptions:
No Action
atorvastatin 10 mg Tablet
10 mg PO QPM
aspirin 81 mg Tablet,Delayed Release (Dr/Ec)
81 mg PO QPM
metoprolol succinate 25 mg Tablet Extended Release 24 Hr
12.5 mg PO DAILY
metformin 500 mg Tablet Extended Release 24 Hr
1,000 mg PO BID
Rybelsus 14 mg Tablet
14 mg PO DAILY
Referrals:
Patricia Galvez MD [Family Provider] -
Interventions
Interventions:
*Risk Screen - Suicide Last Done: 02/24/24 11:19
*General Assessment Last Done: 02/24/24 11:19
*Neglect/Abuse Screening Last Done: 02/24/24 11:19
ED- Fall Risk Assessment Last Done: 02/24/24 11:19
*ED COVID-19 Vaccine History Last Done: 02/24/24 11:21
TU-Jwfqah-Kdqbsrvbyv Assessment Last Done: 02/24/24 11:19
ED-Male Genitourinary Assessment Last Done: 02/24/24 11:19
Discharge Date and Time
Print Language: GEORGIAN
[2024-02-24 11:19] VITALS: BMI 47.3
[2024-02-24] MEDS: NSS 1000 IV ×2 (11:30→21:02)
[2024-02-24] MEDS: ZOFRAN 4 MG IV (11:31)
[2024-02-24] MEDS: TORADOL 15 MG IV (11:31)
[2024-02-24] MEDS: DILAUDID 1 MG IV (11:32)
[2024-02-24 11:39] LABS: % Basophils 0.5 % (0-2); % Eosinophils 0.3 % (0-6); % Immature Granulocytes 0.4 % (0-0.5); % Lymphocytes 14.6 % (20.5-51.1); % Monocytes 10.1 % (1.7-9.3); % Neutrophils 74.1 % (42.2-75.2); Absolute Basophils 0.1 10^3/uL (0-0.2); Absolute Immature Granulocytes 0.1 10^3/uL (0-0.05); Absolute Lymphocytes 1.8 10^3/uL (1.2-3.4); Absolute Monocytes 1.3 10^3/uL (0.1-0.6); Absolute Neutrophils 9.1 10^3/uL (1.4-6.5); Hematocrit 41.9 % (39.0-52.0); Hemoglobin 14.4 g/dL (13.0-18.0); Mean Corp Hgb Conc. 34.4 g/dL (33.0-37.0); Mean Corpuscular Hgb 29.1 pg (27.0-31.0); Mean Corpuscular Volume 84.8 fL (80.0-94.0); Mean Platelet Volume 9.4 fL (7.4-10.4); Nucleated Red Blood Cells % 0 % (-); Platelet Count 288 10^3/uL (130-400); Red Blood Cell Count 4.94 10^6/uL (4.70-6.10); Red Cell Dist. Width 13.9 % (11.5-14.5); White Blood Cell Count 12.3 10^3/uL (4.8-10.8)
[2024-02-24 11:55] LABS: ALT (SGPT) 30 U/L (0-50); AST (SGOT) 23 U/L (17-59); Albumin 4.8 g/dl (3.5-5.0); Alkaline Phosphatase 79 U/L (38-126); Blood Urea Nitrogen 16 mg/dl (9-20); Calcium 11.9 mg/dl (8.4-10.2); Carbon Dioxide 24 mmol/L (22-30); Chloride 104 mmol/L (98-107); Estimated Creatinine Clearance > 125 ml/min; Glucose 157 mg/dl (70-99); Lipase 122 U/L (23-300); Potassium 4.9 mmol/L (3.5-5.1); Sodium 140 mmol/L (135-145); Total Bilirubin 0.9 mg/dl (0.2-1.3); eGFR > 60.00
[2024-02-24 12:12] VITALS: BP 130/89
[2024-02-24 14:10] VITALS: BP 156/90
[2024-02-24 14:33] LABS: Urine Albumin 1+ (Neg - Trace); Urine Bilirubin Negative (Negative); Urine Character Very Cloudy (Clear); Urine Color Yellow; Urine Glucose Negative (Negative); Urine Ketone Negative (Negative); Urine Leukocyte 2+ (Negative); Urine Nitrite Positive (Negative); Urine Occult Blood 3+ (Negative); Urine Urobilinogen Negative (Neg - 1+)
[2024-02-24 15:10] LABS: Urine Bacteria Many (Negative); Urine Squamous Cell 0-2 /LPF (Few); Urine White Cell >100 /HPF (0-5)
[2024-02-24] MEDS: ROCEPHIN 2000 MG IV (16:21)
[2024-02-24] MEDS: FLOMAX 0.4 MG PO (16:22)
--- NOTE | 2024-02-24 16:50 | HPS.HSE ---
Family Physician
-
Family Physician: Patricia Galvez MD
Chief Complaint
-
right flank pain
History of Present Illness
53-year-old male past medical history of kidney stones, type 2 diabetes, hypertension, hyperlipidemia, obesity presenting with his for flank pain. Start having right flank pain last night which was initially mild. He thought he was passing a
small kidney stone but got worse this morning at work. He has nausea and 2 episodes of vomiting yesterday. He feels warm but denies fever. Denies any burning with urination or blood in the urine.
He has interventions for stones previously on his left side.
Denies smoking or alcohol use.
Medical History
Past Medical History
Past Medical History: Reports Other (kidney stones, type 2 diabetes, hypertension, hyperlipidemia, obesity)
Past Surgical History: Reports Other ( Appendectomy)
Social History
Tobacco: Non-smoker
Alcohol: None
Drug: None
Family History
Family History: Not pertinent
Allergies / Home Medications
Allergies reflects when Allergies were last updated in [facility].
Home Medications with original date entered in [facility]
Allergy/Medication List:
Allergies
Allergy/AdvReac Type Severity Reaction Status Date / Time
No Known Allergies Allergy Verified 02/24/24 11:02
Home Medications
aspirin 81 mg tablet,delayed release 81 mg PO QPM Blood Clot Prevention/Tx 09/17/23
atorvastatin 10 mg tablet 10 mg PO QPM High Cholesterol 09/17/23
metformin 500 mg tablet,extended release 24 hr 1,000 mg PO BID Diabetes 09/17/23
metoprolol succinate 25 mg tablet,extended release 24 hr 12.5 mg PO DAILY Blood Pressure 09/17/23
semaglutide 14 mg tablet (Rybelsus) 14 mg PO DAILY Diabetes 09/17/23
Review of Systems
-
History Source: Patient
A 12 point ROS was completed and negative except as noted: Yes
Constitutional: Reports No Symptoms
EENT: Reports No Symptoms
Respiratory: Reports No Symptoms
Cardiac: Reports No Symptoms
Abdomen/GI: Reports See HPI
: Reports No Symptoms
Musculoskeletal: Reports No Symptoms
Skin: Reports No Symptoms
Neurological: Reports No Symptoms
Endocrine: Reports No Symptoms
Hematologic/Lymphatic: Reports No Symptoms
Psych: Reports No Symptoms
Physical Exam
Vital Signs
Vital Signs
Temp Pulse Resp BP Pulse Ox
98.2 F 91 18 156/90 98
02/24/24 14:10 02/24/24 14:10 02/24/24 14:10 02/24/24 14:10 02/24/24 14:10
Physical Exam
General: Well Developed, Well Nourished and No Apparent Distress
HEENT: NormoCephalic, Moist mucous membranes and Atraumatic
Respiratory: Clear
Cardiac: S1/S2 and Regular Rhythm; No Murmur or Rub
GI: Soft, Non Tender, Normal Bowel Sounds and Tender (R flank ); No Organomegaly
Rectal: Deferred by Provider
Musculoskeletal: No Clubbing, No Cyanosis and No Edema
Skin: No Rash
Neuro: Nonfocal/grossly intact
Laboratory Results
-
02/24/24 11:24
02/24/24 11:24
Laboratory Results
Total Bilirubin 0.9 mg/dl (0.2-1.3) 02/24/24 11:24
AST 23 U/L (17-59) 02/24/24 11:24
ALT 30 U/L (0-50) 02/24/24 11:24
Alkaline Phosphatase 79 U/L (38-126) 02/24/24 11:24
Lipase 122 U/L (23-300) 02/24/24 11:24
Data Reviewed
-
Lab Data: Labs Reviewed by me
Old Records: Reviewed
Impression/Plan
-
IMPRESSION:
PLAN:
# Right renal pelvis obstructing renal calculi
# History of nephrolithiasis
-8 mm x 5 mm x 9 mm
-UA indicated infection
-IV fluids
-Ketorolac, Dilaudid, Zofran
-Ceftriaxone
-Tamsulosin
-N.p.o. past midnight
-Hold aspirin
-Urology planning on stent placement tomorrow
Type 2 diabetes
-Hold metformin, Rybelsus
-Insulin sliding scale
Essential hypertension
-Continue metoprolol
Hyperlipidemia
-Continue statin
Obesity
Full code
DVT prophylaxis�SCDs
Regular diet, n.p.o. past midnight
--- NOTE | 2024-02-24 18:49 | CONS.URO ---
Consultation
-
Performing Provider: Peffer
Reason for Consultation: UReteral stone, UTI
Medical History
History of Present Illness
53M prior history of stones and required intervention with ureteroscopy on L side 09/2023
At that time had positive UA and culture treated for Klebsiella
Post op he was found to have high prolactin and was getting outpatient workup for this
He did not complete an ordered 24 hour urine study
He now presents with new onset R flank pain, nausea, and vomiting
No associated UTI symptoms. No fevers or chills at home
CT showed 9mm R prox ureteral stone with hydronephrosis and a few smaller R renal stone
Afebrile and stable with mild leukocytosis
UA grossly positive with +nit
He was started on antibiotic and admitted for further eval
Past Medical History
Past Medical History: Other (kidney stones, type 2 diabetes, hypertension, hyperlipidemia, obesity)
Past Surgical History: Other (Ureteroscopy, appendectomy)
Social History
Tobacco: Non-smoker
Alcohol: None
Drug: None
Family History
Family History: Reviewed & Not Pertinent
Allergies/Home Medications
Allergies
Allergy/AdvReac Type Severity Reaction Status Date / Time
No Known Allergies Allergy Verified 02/24/24 11:02
Home Medications
�Medication �Instructions �Recorded �Confirmed �Type
aspirin 81 mg tablet,delayed 81 mg PO QPM Blood Clot 09/17/23 02/24/24 History
release Prevention/Tx
atorvastatin 10 mg tablet 10 mg PO QPM High Cholesterol 09/17/23 02/24/24 History
metformin 500 mg tablet,extended 1,000 mg PO BID Diabetes 09/17/23 02/24/24 History
release 24 hr
metoprolol succinate 25 mg 12.5 mg PO DAILY Blood Pressure 09/17/23 02/24/24 History
tablet,extended release 24 hr
semaglutide 14 mg tablet (Rybelsus) 14 mg PO DAILY Diabetes 09/17/23 02/24/24 History
Physical Exam
Vital Signs
Vital Signs
Temp Pulse Resp BP Pulse Ox
98.2 F 91 18 156/90 98
02/24/24 14:10 02/24/24 14:10 02/24/24 14:10 02/24/24 14:10 02/24/24 14:10
Lab / Testing Results
Laboratory Results
02/24/24 11:24
02/24/24 11:24
Physical Exam
General: Well Developed, Well Nourished and No Apparent Distress
Respiratory: Clear
GI: Soft and Non Tender
Genito-urinary: No Costovertebral Tend
Neuro: AO x 3
Psych: Calm and Intact Judgement
Assessment / Plan
-
53M with obstructing R renal pelvis/proximal ureteral stone and urinalysis positive for likely UTI
Afebrile and stable without signs of sepsis
- Plan for OR tomorrow for cystoscopy, R ureteral stent placement. Possible ureteroscopy if no evidence of active infection
- Continue ceftriaxone pending urine cultures
- NPO at MN
- Strain urine
- NSAID PRN pain control
Data Reviewed
-
CT Scan: Image personally visualized and interpreted
Lab Data: Labs Reviewed
Old Records: Reviewed
[2024-02-24 19:00] VITALS: BP 139/73
[2024-02-24 20:00] VITALS: BP 126/76; BMI 47.1
--- NOTE | 2024-02-24 20:00 | PTCARENOTE ---
Pt arrived to room 419-01. Pt ambulated from stretcher to bed. Pt AAOx3, VSS. Pt with no c/o pain. Pt oriented to room, call tang placed within reach.
[2024-02-24 20:54] LABS: Glucose - Point of Care 164 mg/dl (70-99)
[2024-02-24] MEDS: LIPITOR 10 MG PO (21:02)
[2024-02-24 23:34] VITALS: BP 140/77
[2024-02-24 23:59] LABS: Glucose - Point of Care 184 mg/dl (70-99)
[2024-02-25] VITALS (10 sets, daily range): BP systolic 99–131; BP diastolic 65–79
--- NOTE | 2024-02-25 01:29 | W.PN.URO.CBU ---
Today's Communication / Plan
-
OR today for cystoscopy, stent placement
Assessment / Plan
-
53M with obstructing R renal pelvis/proximal ureteral stone and urinalysis positive for likely UTI
Afebrile and stable without signs of sepsis
- OR today for cystoscopy, R ureteral stent placement. Possible ureteroscopy if no evidence of active infection
- Continue ceftriaxone pending urine cultures
- NPO
- NSAID PRN pain control
Diagnosis
-
Date of Service: February 25, 2024
-
Patient Diagnosis:
R ureteral stone
UTI
Post Op Day:
Subjective
-
sleeping
Objective
-
Vital Signs
Temp Pulse Resp BP Pulse Ox
97.6 F 91 20 140/77 98
02/24/24 23:34 02/24/24 23:34 02/24/24 23:34 02/24/24 23:34 02/24/24 23:34
Physical Exam
-
General - well developed, well nourished, no acute distress
Chest - unlabored
Skin - warm & dry
[2024-02-25 06:58] LABS: Glucose - Point of Care 143 mg/dl (70-99)
[2024-02-25 08:04] LABS: % Basophils 0.8 % (0-2); % Eosinophils 1.3 % (0-6); % Immature Granulocytes 0.4 % (0-0.5); % Lymphocytes 18.1 % (20.5-51.1); % Monocytes 10.8 % (1.7-9.3); % Neutrophils 68.6 % (42.2-75.2); Absolute Basophils 0.1 10^3/uL (0-0.2); Absolute Eosinophils 0.1 10^3/uL (0-0.7); Absolute Lymphocytes 1.4 10^3/uL (1.2-3.4); Absolute Monocytes 0.8 10^3/uL (0.1-0.6); Absolute Neutrophils 5.3 10^3/uL (1.4-6.5); Hematocrit 37.4 % (39.0-52.0); Hemoglobin 12.7 g/dL (13.0-18.0); Mean Corpuscular Hgb 29.5 pg (27.0-31.0); Mean Platelet Volume 9.3 fL (7.4-10.4); Nucleated Red Blood Cells % 0 % (-); Platelet Count 215 10^3/uL (130-400); Red Cell Dist. Width 14.1 % (11.5-14.5); White Blood Cell Count 7.8 10^3/uL (4.8-10.8)
[2024-02-25] MEDS: NSS 1000 IV ×2 (08:20→14:32)
[2024-02-25] MEDS: NOVOLOG FLEXPEN-LOW RESISTANCE SC ×3 (08:20→15:56)
[2024-02-25] MEDS: TOPROL XL 12.5 MG PO (08:20)
[2024-02-25 08:21] LABS: ALT (SGPT) 29 U/L (0-50); AST (SGOT) 21 U/L (17-59); Albumin 3.9 g/dl (3.5-5.0); Alkaline Phosphatase 78 U/L (38-126); Blood Urea Nitrogen 15 mg/dl (9-20); Calcium 10.2 mg/dl (8.4-10.2); Carbon Dioxide 26 mmol/L (22-30); Chloride 106 mmol/L (98-107); Estimated Creatinine Clearance > 125 ml/min; Glucose 158 mg/dl (70-99); Potassium 4.3 mmol/L (3.5-5.1); Sodium 141 mmol/L (135-145); Total Bilirubin 1.1 mg/dl (0.2-1.3); Total Protein 6.8 g/dl (6.3-8.2); eGFR > 60.00
--- NOTE | 2024-02-25 08:23 | W.PN.UPDATE ---
Update Note
Progress Note Update
53-year-old male with flank pain
I personally performed a history and physical exam of the patient and discussed management with the resident. I reviewed the resident's note and agree with the documented findings and plan of care HPI/CC except for
Abdomen: Soft, NT
Extremities: No edema
# Right renal pelvis obstructing calculi
History of nephrolithiasis
Possible UTI
Continue IV fluids, ketorolac, Dilaudid for pain
Continue ceftriaxone and wait for urine Cx
Continue Flomax
Urology planning for OR today
# Type 2 diabetes
Check HBA1C
Hold metformin and Rybelsus as n.p.o.
Sliding scale coverage with Accu-Cheks
# Hypertension-continue metoprolol
# Hyperlipidemia-continue statin
# Obesity with a BMI of 47-resume Rybelsus as outpatient
# Vit D Def- Add replacement
# Cholelithiasis
# Hepatic steatosis
# Degenerative disc disease
# History pulmonary embolism
# DVT prophylaxis-add Lovenox with SCDs
# Full code
D/W Urology
[2024-02-25] MEDS: FLOMAX PO (09:30)
[2024-02-25 10:27] LABS: Glycohemoglobin (HgbA1c) 7.3 % (4.0-5.6)
--- NOTE | 2024-02-25 10:50 | CM ---
CM reviewed chart, patient for OR today for cystoscopy. Patient seen bedside, initial assessment completed. Patient resides with his in a single story apartment, three steps to enter. Patient has a cane at home if needed, denies other DME.
Patient denies VN or SNF history. Patient confirms PCP Patricia Galvez, pharmacy [facility], confirms prescription coverage through insurance but has been having difficulties with prescription plan. Patient denies insecurities at home. CM
will continue to follow for all discharge planning needs.
Plan; no needs likely.
[2024-02-25 11:33] LABS: Glucose - Point of Care 112 mg/dl (70-99)
--- NOTE | 2024-02-25 13:21 | W.IMMPOSTOP ---
Surgical Immed Post Op Note
-
Primary Surgeon:
kalani
Assisting Surgeon:
Pre-op Diagnosis:
right upj stone and UTI
Post-op Diagnosis:
same
Procedure Performed:
cysto/right ureteral stent
Anesthesia Type:
gen
Specimen / Cultures:
none
Estimated Blood Loss:
2cc
Complications:
none
Operative Findings:
6 italian/24cm right ureteral stent placed
+ cloudy urine drained from kidney
continue antibx- await cx
plan for outpt definitive stone treatment in about 14 days
[2024-02-25 13:39] LABS: Glucose - Point of Care 122 mg/dl (70-99)
--- NOTE | 2024-02-25 14:14 | W.PN.HOSP.TC ---
Today's Communication/Plan
-
Cystoscopy and ureteral stenting on right side at [facility]
Observe for 24hrs
Plan discharge
Assessment / Plan
Assessment / Plan
IMPRESSION
A 53/male with past medical history of essential hypertension, Hyperlipidemia, Diabetes mellitus type 2,recurrent kidney stones presented with right sided flank pain, nausea and vomiting.
ASSESSMENT
Right sided ureteropelvic junction stone
Past history of pulmonary embolism
Type 2 diabetes mellitus
Essential Hypertension
Hyperlipidemia
EMMY
PLAN
Right sided ureteropelvic junction Stone
Pain in right flank radiating to back and groin
Ct Abdomen and pelvis showed , bilateral nephrolithiasis, obstructive calculus at right ureteropelvic junction measuring 8*5*9mm
Urinalysis negative for UTI
Admit for cystoscopy/right sided ureteral stent
Possible urethroscopy if no infection
IV fluids,ketorolac and dilaud for pain
Past history of pulmonary embolism
Patient had bilateral pulmonary emboli in 2008
Took Warfarin for 2 years
DVT prophylaxis-Lovenox and SCD
Type 2 diabetes mellitus
Check HBA1C
Hold metformin and Rybelsus as n.p.o.
Sliding scale coverage with Accu-Cheks
Essential Hypertension
Continue home metoprolol succinate
Hyperlipidemia
continue statin
EMMY
CPAP non compliant
Asymptomatic Cholelithiasis,bilateral inguinal hernia containing fat,appendectomy,increased prolactin workup still going on
Code status- full code
DVT prophylaxis
Lovenox and SCD
Anticipated Discharge: 24 - 48 hours
Subjective/Interval History
-
Date of Service: February 25, 2024
Patient had cystoscopy/ureteral stent for a stone at right ureteropelvic junction.
Patient feels overwhelmed as he lost his father and grandma recently,work stress and medical condition
Objective Data
-
Labs:
Laboratory Results
02/25/24
07:34
WBC 7.8
Hgb 12.7 L
Hct 37.4 L
Plt Count 215 D
Sodium 141
Potassium 4.3
Chloride 106
Carbon Dioxide 26
BUN 15
Creatinine 0.9
Glucose 158 H
Calcium 10.2
Total Bilirubin 1.1
AST 21
ALT 29
Alkaline Phosphatase 78
Vital Signs:
Vital Signs
Temp Pulse Resp BP Pulse Ox
97.4 F 70 14 104/67 98
02/25/24 14:00 02/25/24 14:00 02/25/24 14:00 02/25/24 14:00 02/25/24 14:00
I&O
02/24/24 02/25/24 02/26/24
06:59 06:59 06:59
Intake Total 200 / 200
Output Total 1000 / 1000
Balance -1000 / -1000 200 / 200
Review of Systems
-
All other systems: Reviewed and negative
Physical Exam
-
General: Well Developed, Comfortable, Conversant and Obese
HEENT: Normocephalic, Atraumatic and Moist Mucous Membranes
Respiratory: Clear to Auscultation
Cardiac: Regular Rhythm and S1/S2
GI: Soft, Nontender, Nondistended and Normal Bowel Sounds
Genito-urinary: No Costovertebral Tender
Musculoskeletal: No Clubbing, No Cyanosis and No Edema
Skin: Warm and Dry
Neuro: Awake, Alert and Oriented
Hematologic / Lymphatic: No Lymphadenopathy
Psych: Anxious
[2024-02-25] MEDS: ROCEPHIN 1000 MG IV (15:41)
[2024-02-25] MEDS: STERILE WATER FOR INJECTION 10 ML IV (15:41)
[2024-02-25] MEDS: Pyridium 100 MG PO ×2 (15:41→23:06)
[2024-02-25 15:54] LABS: Glucose - Point of Care 141 mg/dl (70-99)
[2024-02-25] MEDS: LOVENOX 40 MG SC (17:42)
[2024-02-25] MEDS: LIPITOR 10 MG PO (17:43)
[2024-02-25 19:14] LABS: Glucose - Point of Care 210 mg/dl (70-99)
[2024-02-25 21:57] LABS: Glucose - Point of Care 211 mg/dl (70-99)
[2024-02-26] MEDS: NSS 1000 IV ×2 (02:53→12:49)
[2024-02-26 07:30] VITALS: BP 164/95
[2024-02-26 07:46] LABS: Glucose - Point of Care 152 mg/dl (70-99)
[2024-02-26] MEDS: TOPROL XL 12.5 MG PO (07:55)
[2024-02-26] MEDS: VITAMIN D3 (cholecalciferol) 50 MCG PO (07:55)
[2024-02-26] MEDS: FLOMAX 0.4 MG PO (07:55)
[2024-02-26] MEDS: Pyridium 100 MG PO (07:55)
--- NOTE | 2024-02-26 07:55 | W.PN.URO.CBU ---
Today's Communication / Plan
-
treat UTI
discharge when medically stable
oupt f/u for stone procedure
Assessment / Plan
-
53M with obstructing R renal pelvis/proximal ureteral stone and UTI
+ ucx for gram neg rods
s/p right ureteral stent on 02/24
pt stable
await ucx- when cx and sens back- discharge with 14 day course of appropriate antibx therapy
also would discharge with flomax/pyridium and tramadol
pt to call dr uriarte's office at discharge to arrange definitive stone procedure
Diagnosis
-
Date of Service: February 26, 2024
-
Patient Diagnosis:
R ureteral stone
UTI
Post Op Day:
02/24 RIGHT URETERAL STENT PLACEMENT
Subjective
-
pt feels ok
ucx + for gram neg rods
no fevers
Objective
-
Vital Signs
Temp Pulse Resp BP Pulse Ox
99.3 F 83 20 131/74 96
02/25/24 23:52 02/25/24 23:52 02/25/24 23:52 02/25/24 23:52 02/25/24 23:52
Intake and Output
02/25/24 02/26/24 02/27/24
06:59 06:59 06:59
Intake Total 1879 / 1880
Output Total 1000 / 1000 1575 / 1575
Balance -1000 / -1000 305 / 305
Intake:
Oral fluids 1680 / 1680
IV fluids (Total) 200 / 200
Normosol 200 / 200
Output:
Urine, Voided 1000 / 1000 1575 / 1575
Other:
Number of approximated MODERATE 1
amounts of urine
Review of Systems
-
Constitutional: Fatigue
Respiratory: No Symptoms
Cardiac: No Symptoms
Abdomen/GI: No Symptoms
: Frequency
Physical Exam
-
General - no acute distress
[2024-02-26 08:34] LABS: % Basophils 0.5 % (0-2); % Eosinophils 0.8 % (0-6); % Immature Granulocytes 0.5 % (0-0.5); % Lymphocytes 21.2 % (20.5-51.1); % Monocytes 8.1 % (1.7-9.3); % Neutrophils 68.9 % (42.2-75.2); Absolute Eosinophils 0.1 10^3/uL (0-0.7); Absolute Lymphocytes 1.8 10^3/uL (1.2-3.4); Absolute Monocytes 0.7 10^3/uL (0.1-0.6); Absolute Neutrophils 5.7 10^3/uL (1.4-6.5); Hematocrit 39.2 % (39.0-52.0); Hemoglobin 13.1 g/dL (13.0-18.0); Mean Corp Hgb Conc. 33.4 g/dL (33.0-37.0); Mean Corpuscular Hgb 29.4 pg (27.0-31.0); Mean Corpuscular Volume 87.9 fL (80.0-94.0); Mean Platelet Volume 9.7 fL (7.4-10.4); Nucleated Red Blood Cells % 0 % (-); Platelet Count 245 10^3/uL (130-400); Red Blood Cell Count 4.46 10^6/uL (4.70-6.10); Red Cell Dist. Width 13.7 % (11.5-14.5); White Blood Cell Count 8.3 10^3/uL (4.8-10.8)
[2024-02-26 08:39] LABS: INR 1.03; PT 13.3 Sec (11.4-14.6)
[2024-02-26] MEDS: NOVOLOG FLEXPEN-LOW RESISTANCE 1 UNITS SC ×2 (09:18→12:48)
[2024-02-26 09:56] LABS: ALT (SGPT) 28 U/L (0-50); AST (SGOT) 19 U/L (17-59); Alkaline Phosphatase 79 U/L (38-126); Blood Urea Nitrogen 12 mg/dl (9-20); Carbon Dioxide 25 mmol/L (22-30); Chloride 104 mmol/L (98-107); Estimated Creatinine Clearance > 125 ml/min; Glucose 139 mg/dl (70-99); Magnesium 2.3 mg/dl (1.6-2.3); Potassium 4.9 mmol/L (3.5-5.1); Sodium 142 mmol/L (135-145); Total Bilirubin 0.7 mg/dl (0.2-1.3); eGFR > 60.00
[2024-02-26 10:13] LABS: Uric Acid 5.9 mg/dl (3.5-8.5)
--- NOTE | 2024-02-26 11:22 | CM ---
Patient seen bedside, reports no needs to CM at this time. CM will continue to follow for all discharge planning needs.
Plan; home no needs when stable.
[2024-02-26 12:40] LABS: Glucose - Point of Care 152 mg/dl (70-99)
--- NOTE | 2024-02-26 13:04 | W.DCSUMMARY ---
Discharge Summary
Discharge Data
Date of Admission: 02/24/24
Date of Discharge: 02/26/24
-
Pending Results: No
Hospital Course
Discharging Physician : Dr. Itz Novak, Dr. Sharlene Khan
Disposition : Home
Primary care physician : Patricia Galvez
Principal Discharge diagnosis :Right ureteropelvic stone/Cystoscopy/ Right ureteric stent
Chronic Discharge diagnosis : Hypertension, Diabetes mellitus, Hyperlipidemia, Recurrent renal stones, cholelithiasis
Hospital Course :
Patient presented to emergency on with complain of pain in right flank region radiating towards the groin associated with nausea and vomiting.He denied any blood in urine or burning micturition. A urinalysis was done that showed a
possible UTI.He had an abdomen and pelvis ct scan done that showed a stone at the right ureteropelvic junction measuring 8*5*9mm. Urology was involved in patient care who decided to do a cystoscopy and place a right sided ureteral stent.Post
operative abdominal x-ray confirmed stent location in right ureter. Patient discharged with oral antibiotic course for 14 days to treat UTI and Flomax/Pyridium for urinary issues as per urology.
Patient will follow-up with urology for stent removal
Important imaging findings :
CT Abdomen/Pelvis IMPRESSION:02/23
Obstructing calculus in the right renal pelvis as described.
Bilateral nephrolithiasis.
Cholelithiasis. No evidence for acute cholecystitis.
Fatty infiltration of the liver. Fatty infiltration of the pancreas.
Small fat-containing umbilical hernia. There appears to be a small calcification at the anterior margin of this fat-containing umbilical hernia, stable from prior CT. Stranding of the subcutaneous soft tissues surrounding the umbilicus, and please
correlate with any adjacent inflammation.
Bilateral fat-containing inguinal hernias.
Abdominal XRAY FINDINGS:02/24
Fluoroscopy provided and images obtained for procedure guidance.
Right-sided ureteral stent with tips projecting over the region of the right renal hilum and urinary bladder.
Procedure findings :
Operative Findings:Urology notes
6 ukrainian/24cm right ureteral stent placed
+ cloudy urine drained from kidney
continue antibx- await cx
plan for outpt definitive stone treatment in about 14 days
Discharge Plan
-
Patient Disposition: Home (Routine Discharge)
Discharge Diagnosis/Procedures: Right ureteropelvic junction stone/Cystoscopy and right ureter stent placement
Condition: Fair
Diet: As tolerated
Activity: No restrictions
Driving Restrictions: As prior to admission
Bathing Restrictions: OK to Shower
Referrals:
Patricia Galvez MD [Family Provider] -
Prescriptions:
New
tamsulosin 0.4 mg Capsule
0.4 mg PO DAILY 30 Days Qty: 30 0RF
phenazopyridine 100 mg Tablet
100 mg PO Q8 30 Days Qty: 90 0RF
cefdinir 300 mg capsule
300 mg PO BID 14 Days Qty: 28 0RF
Continued
atorvastatin 10 mg Tablet
10 mg PO QPM
aspirin 81 mg Tablet,Delayed Release (Dr/Ec)
81 mg PO QPM
metoprolol succinate 25 mg Tablet Extended Release 24 Hr
12.5 mg PO DAILY
metformin 500 mg Tablet Extended Release 24 Hr
1,000 mg PO BID
Rybelsus 14 mg Tablet
14 mg PO DAILY
Discharge Date and Time
Print Language: MONGOLIAN
--- NOTE | 2024-02-26 13:08 | W.PN.HOSP.TC ---
Addendum entered and electronically signed by Itz Novak MD 02/26/24 15:00:
I personally performed a history and physical exam of the patient and discussed management with the resident. I reviewed the resident's note and agree with the documented findings and plan of care HPI/CC.
Patient was seen earlier. Late documentation. He was feeling well.
CVS: S1-S2 normal
Chest: CTA B/L
Abdomen: Soft, NT / Bowel sounds present
Extremities: No edema
Urine cultures with Klebsiella
Antibiotics changed to cefdinir for 2 weeks
Patient is aware that he needs to call urology for stent removal.
More than 30 minutes spent in discharge including
Final examination of the patient
Summarizing hospital stay
Instructions for continuing care to all relevant caregivers
Preparation of discharge records, prescriptions, and referral forms
Total time spent (in minutes): 31
Original Note:
Today's Communication/Plan
-
Plan discharge today with urology input
Cefdinir 300mg bid for 14 days at home
Assessment / Plan
Assessment / Plan
IMPRESSION
A 53/male with past medical history of essential hypertension, Hyperlipidemia, Diabetes mellitus type 2,recurrent kidney stones presented with right sided flank pain, nausea and vomiting.
ASSESSMENT
Right sided ureteropelvic junction stone
Past history of pulmonary embolism
Type 2 diabetes mellitus
Essential Hypertension
Hyperlipidemia
EMMY
PLAN
Right sided ureteropelvic junction Stone
Pain in right flank radiating to back and groin
Ct Abdomen and pelvis showed , bilateral nephrolithiasis, obstructive calculus at right ureteropelvic junction measuring 8*5*9mm
Urinalysis negative for UTI
cystoscopy/right sided ureteral stent done
Post-op abdomen x-ray shows a stent in place
Past history of pulmonary embolism
Patient had bilateral pulmonary emboli in 2008
Took Warfarin for 2 years
DVT prophylaxis-Lovenox and SCD
Type 2 diabetes mellitus
HBA1C 7.3
can continue metformin and Rybelsus at home
Essential Hypertension
Continue home metoprolol succinate
Hyperlipidemia
continue statin
EMMY
CPAP non compliant
Asymptomatic Cholelithiasis,bilateral inguinal hernia containing fat,appendectomy,increased prolactin workup still going on
Code status- full code
DVT prophylaxis
Lovenox and SCD
Anticipated Discharge: Within 24 hours
Subjective/Interval History
-
Date of Service: February 26, 2024
No active issues. Postoperatively patient feels well, eating food, walking around and had a bowel movement.
Objective Data
-
Labs:
Laboratory Results
02/26/24
07:06
WBC 8.3
Hgb 13.1
Hct 39.2
Plt Count 245
PT 13.3
INR 1.03
Sodium 142
Potassium 4.9
Chloride 104
Carbon Dioxide 25
BUN 12
Creatinine 0.9
Glucose 139 H
Calcium 10.0
Total Bilirubin 0.7
AST 19
ALT 28
Alkaline Phosphatase 79
Vital Signs:
Vital Signs
Temp Pulse Resp BP Pulse Ox
100.0 F 74 18 164/95 96
02/26/24 07:30 02/26/24 07:30 02/26/24 07:30 02/26/24 07:30 02/26/24 07:55
I&O
02/25/24 02/26/24 02/27/24
06:59 06:59 06:59
Intake Total 1879 / 1880
Output Total 1000 / 1000 1575 / 1575
Balance -1000 / -1000 305 / 305
Review of Systems
-
All other systems: Reviewed and negative
Physical Exam
-
General: Well Developed, Well Nourished, No Apparent Distress, Comfortable and Conversant
HEENT: Normocephalic and Atraumatic
Respiratory: Clear to Auscultation
Cardiac: Regular Rhythm and S1/S2
GI: Soft, Nondistended, Normal Bowel Sounds and Other (Some tenderness in the right flank)
Genito-urinary: No Costovertebral Tender
Musculoskeletal: No Clubbing, No Cyanosis and No Edema
Skin: Warm
Neuro: Awake, Alert and No Motor Deficits
Hematologic / Lymphatic: No Lymphadenopathy
Psych: Calm
[2024-02-26 14:44] VITALS: BP 146/88
== END 2024-02-26 16:02 | disposition home or self-care (01) | DRG 660 ==
LOC: 4 WEST ACU 17:37
PROVIDERS: Emergency Medicine; Physician Assistant; Specialist; ADMITTING PHYSICIAN Hospitalist; ATTENDING PHYSICIAN Hospitalist; CONSULT PHYSICIAN Urology; EMERGENCY PHYSICIAN Emergency Medicine; FAMILY PHYSICIAN Emergency Medicine
PROC: 0T768DZ Dilation of Right Ureter with Intraluminal Device, Via Natural or Artificial Opening Endoscopic (ICD-10-PCS; 2024-02-25)
DX: N13.6 Pyonephrosis (principal); Z68.42 Body mass index [BMI] 45.0-49.9, adult; I10 Essential (primary) hypertension; E78.5 Hyperlipidemia, unspecified; G47.33 Obstructive sleep apnea (adult) (pediatric); K80.20 Calculus of gallbladder without cholecystitis without obstruction; K42.9 Umbilical hernia without obstruction or gangrene; K76.0 Fatty (change of) liver, not elsewhere classified; K40.20 Bilateral inguinal hernia, without obstruction or gangrene, not specified as recurrent; E66.9 Obesity, unspecified; E11.9 Type 2 diabetes mellitus without complications; Z87.442 Personal history of urinary calculi; Z79.82 Long term (current) use of aspirin; Z79.84 Long term (current) use of oral hypoglycemic drugs; Z86.711 Personal history of pulmonary embolism; Z91.199 Patient's noncompliance with other medical treatment and regimen due to unspecified reason
CPT/HCPCS: 74018; 74176; 76000; 80053; 81003; 81015; 82962; 83036; 83690; 83735; 84550; 85025; 85610; 87077; 87086; 87186; 96361; 96374; 96375; 99284; C1758; C1894; C2617

== ENCOUNTER 2024-03-01 12:09 | Emergency (ER) | payer BC, SELFPAY ==
[2024-03-01 12:13] VITALS: BP 137/98
--- NOTE | 2024-03-01 12:14 | ED.GENMED ---
ED Provider Triage
<Cata Engel PA-C - Last Filed: 03/01/24 12:21>
-
Patient seen by provider in Triage?: Seen in Triage
Attestation: A medical screening examination has been initiated by a qualified medical provider. Based on the assessment performed at this time, it has been determined that an emergent medical condition may exist and the patient has been informed
that further medical evaluation and possible additional diagnostic testing may be needed.
HPI: 53yoM here with R groin pain/RLQ pain. Associated with nausea, vomiting, and hematuria. Recent stent placement on 02/25/24. Sent here by urology.
GENERAL: Alert , in no apparent distress
EYE: No visual abnormalities.
NECK: Trachea midline
ENT: No visible abnormalities.
LUNGS: No acute respiratory distress
NEUROLOGICAL: Alert and oriented
SKIN: Skin intact. No visible changes.
MUSCULOSKELETAL: Moving extremities normally
PSYCH: Normal and appropriate interaction.
This is a medical evaluation conducted in person to initiate diagnostic evaluation and provide initial therapeutics. Please see further documentation by the treating clinician.
CBC, CMP, and UA ordered.
History of Present Illness
<Cata Engel PA-C - Last Filed: 03/01/24 12:21>
General
Chief Complaint: Male Genito-Urinary Symptoms
Time Seen by Provider: 03/01/24 13:31
<Tereza Narayan PA-C - Last Filed: 03/01/24 19:14>
General
Source: patient and spouse
Exam Limitations: none
Nursing documentation reviewed up to this point in time: agreed with
History of Present Illness
History of Present Illness:
Patient is a 53-year-old male with history of known right kidney stone s/p stent placement 02/25/24 presenting with acute worsening right flank pain. Patient states yesterday he had a dull ache in his right flank/right lower abdomen. He did
contact his urologist, Dr. Hoover who stated that the symptoms would be expected. However�patient states this morning pain became much more severe and he had multiple episodes of nausea/vomiting. Further evaluation. Patient states he had bright
red urine, as well.
Patient was discharged from the hospital with a prescription for cefdinir. He has been taking ibuprofen for pain management at home
Patient denies any associated fever, chills, chest pain, shortness of breath. No dysuria or urinary hesitancy.
Patient was scheduled to follow-up with Dr. Hoover for definitive stone management shortly.
Past History
<Cata Engel PA-C - Last Filed: 03/01/24 12:21>
Past History
ED Past Medical History: Other (Pre Diabetic, Plantar fasciitis, Bone spurs)
ED Past Surgical History: Appendectomy
Social History
Tobacco: Non-smoker
Alcohol: None
Personal:
Living: with family
Review of Systems
<Tereza Narayan PA-C - Last Filed: 03/01/24 19:14>
Review of Systems
Allergies reviewed?: Yes
All Other Systems: ROS reviewed and negative except as documented in HPI and ROS
Phy Exam
<Tereza Narayan PA-C - Last Filed: 03/01/24 19:14>
Physical Exam
Physical Exam:
Vitals: Tachycardic, otherwise vital signs stable. Afebrile
General: Patient is moderately uncomfortable due to pain
Skin: Warm and dry, no rashes or lesions
Head: Normocephalic, atraumatic
Eyes: Sclera nonicteric. EOMs intact. No nystagmus.
Throat: Protecting airway
Neck: Normal ROM, no cervical spine tenderness, no meningismus
Cardiac: Tachycardic, normal rhythm, no murmurs.
Pulm: Normal respiratory effort, no wheezes, rales, rhonchi heard on exam.
Abdomen: Abdomen soft. No reproducible abdominal tenderness. No CVA tenderness. No overlying rash, erythema, or ecchymoses.
Extremities: No evidence of cyanosis or edema
Neuro: AAOx3. CN II-XII intact. No focal neurologic deficits.
Psychiatric: Normal affect.
Course
<Cata Engel PA-C - Last Filed: 03/01/24 12:21>
Orders/Labs/Results
Orders:
Orders
03/01/24 12:23
Complete Blood Count/With Diff Urgent
Comprehensive Metabolic Panel Urgent
03/01/24 13:46
0.9% Sodium Chloride 1000 ml [Nss] 1,000 ml IV BOLUS
HYDROmorphone [Dilaudid] 0.5 mg IV NOW STA
Ondansetron Injectable [Zofran] 4 mg IV NOW STA
03/01/24 14:10
Urinalysis Reflex To Culture Urgent
Date Specimen was Collected: 03/01/24
Time Specimen was Collected: 12:20
Urine Microscopic Reflex Cult Urgent
Urine Culture Urgent
LUIS Source: U
Specimen Description:
Date Specimen was Collected: 03/01/24
Time Specimen was Collected: 12:20
03/01/24 14:16
CT Abd/pel Without Iv Or Oral Urgent
Comment: stent placement 02/25/24
Reason For Exam: RLQ pain, N/V
03/01/24 17:37
Ketorolac [Toradol] 15 mg .ROUTE .STK-MED ONE
03/01/24 17:38
Ketorolac [Toradol] 15 mg IV NOW STA
Abnormal Lab Results
03/01/24 03/01/24
12:23 14:10
WBC 12.6 H 10^3/uL
(4.8-10.8)
Abs Immat Gran (auto) 0.1 H 10^3/uL
(0-0.05)
Absolute Neuts (auto) 10.6 H 10^3/uL
(1.4-6.5)
Immature Gran % 0.6 H %
(0-0.5)
Neutrophils % 83.8 H %
(42.2-75.2)
Lymphocytes % 10.4 L %
(20.5-51.1)
Carbon Dioxide 19 L mmol/L
(22-30)
Glucose 211 H mg/dl
(70-99)
Calcium 12.4 H mg/dl
(8.4-10.2)
Total Protein 8.5 H g/dl
(6.3-8.2)
Albumin 5.1 H g/dl
(3.5-5.0)
Urine Ketones Trace A
(Negative)
Ur Occult Blood Reflex 4+ A
(Negative)
Urine Nitrite (Reflex) Positive A
(Negative)
Urine Bilirubin 2+ A
(Negative)
Urine Urobilinogen 2+ A
(Neg - 1+)
Leukocyte Esterase Rfl 1+ A
(Negative)
Urine RBC >100 A /HPF
(0-2)
Urine Albumin (Reflex) 3+ A
(Neg - Trace)
03/01/24 12:23
03/01/24 12:23
Vital Signs
Initial and Last Documented VS:
Initial Vital Signs
Temp Pulse Resp BP Pulse Ox
37.4 C 131 18 137/98 97
03/01/24 12:13 03/01/24 12:13 03/01/24 12:13 03/01/24 12:13 03/01/24 12:13
Last Documented Vital Signs
Temp Pulse Resp BP Pulse Ox
37.4 C 94 18 136/78 99
03/01/24 12:13 03/01/24 17:44 03/01/24 17:44 03/01/24 17:44 03/01/24 17:44
<Tereza Narayan PA-C - Last Filed: 03/01/24 19:14>
Orders/Labs/Results
Orders:
Orders
03/01/24 12:23
Complete Blood Count/With Diff Urgent
Comprehensive Metabolic Panel Urgent
03/01/24 13:46
0.9% Sodium Chloride 1000 ml [Nss] 1,000 ml IV BOLUS
HYDROmorphone [Dilaudid] 0.5 mg IV NOW STA
Ondansetron Injectable [Zofran] 4 mg IV NOW STA
03/01/24 14:10
Urinalysis Reflex To Culture Urgent
Date Specimen was Collected: 03/01/24
Time Specimen was Collected: 12:20
Urine Microscopic Reflex Cult Urgent
Urine Culture Urgent
LUIS Source: U
Specimen Description:
Date Specimen was Collected: 03/01/24
Time Specimen was Collected: 12:20
03/01/24 14:16
CT Abd/pel Without Iv Or Oral Urgent
Comment: stent placement 02/25/24
Reason For Exam: RLQ pain, N/V
03/01/24 17:37
Ketorolac [Toradol] 15 mg .ROUTE .STK-MED ONE
03/01/24 17:38
Ketorolac [Toradol] 15 mg IV NOW STA
Abnormal Lab Results
03/01/24 03/01/24
12:23 14:10
WBC 12.6 H 10^3/uL
(4.8-10.8)
Abs Immat Gran (auto) 0.1 H 10^3/uL
(0-0.05)
Absolute Neuts (auto) 10.6 H 10^3/uL
(1.4-6.5)
Immature Gran % 0.6 H %
(0-0.5)
Neutrophils % 83.8 H %
(42.2-75.2)
Lymphocytes % 10.4 L %
(20.5-51.1)
Carbon Dioxide 19 L mmol/L
(22-30)
Glucose 211 H mg/dl
(70-99)
Calcium 12.4 H mg/dl
(8.4-10.2)
Total Protein 8.5 H g/dl
(6.3-8.2)
Albumin 5.1 H g/dl
(3.5-5.0)
Urine Ketones Trace A
(Negative)
Ur Occult Blood Reflex 4+ A
(Negative)
Urine Nitrite (Reflex) Positive A
(Negative)
Urine Bilirubin 2+ A
(Negative)
Urine Urobilinogen 2+ A
(Neg - 1+)
Leukocyte Esterase Rfl 1+ A
(Negative)
Urine RBC >100 A /HPF
(0-2)
Urine Albumin (Reflex) 3+ A
(Neg - Trace)
03/01/24 12:23
03/01/24 12:23
Vital Signs
Initial and Last Documented VS:
Initial Vital Signs
Temp Pulse Resp BP Pulse Ox
37.4 C 131 18 137/98 97
03/01/24 12:13 03/01/24 12:13 03/01/24 12:13 03/01/24 12:13 03/01/24 12:13
Last Documented Vital Signs
Temp Pulse Resp BP Pulse Ox
37.4 C 94 18 136/78 99
03/01/24 12:13 03/01/24 17:44 03/01/24 17:44 03/01/24 17:44 03/01/24 17:44
<Hunter Lerma MD - Last Filed: 03/01/24 19:55>
Orders/Labs/Results
Orders:
Orders
03/01/24 12:23
Complete Blood Count/With Diff Urgent
Comprehensive Metabolic Panel Urgent
03/01/24 13:46
0.9% Sodium Chloride 1000 ml [Nss] 1,000 ml IV BOLUS
HYDROmorphone [Dilaudid] 0.5 mg IV NOW STA
Ondansetron Injectable [Zofran] 4 mg IV NOW STA
03/01/24 14:10
Urinalysis Reflex To Culture Urgent
Date Specimen was Collected: 03/01/24
Time Specimen was Collected: 12:20
Urine Microscopic Reflex Cult Urgent
Urine Culture Urgent
LUIS Source: U
Specimen Description:
Date Specimen was Collected: 03/01/24
Time Specimen was Collected: 12:20
03/01/24 14:16
CT Abd/pel Without Iv Or Oral Urgent
Comment: stent placement 02/25/24
Reason For Exam: RLQ pain, N/V
03/01/24 17:37
Ketorolac [Toradol] 15 mg .ROUTE .STK-MED ONE
03/01/24 17:38
Ketorolac [Toradol] 15 mg IV NOW STA
Abnormal Lab Results
03/01/24 03/01/24
12:23 14:10
WBC 12.6 H 10^3/uL
(4.8-10.8)
Abs Immat Gran (auto) 0.1 H 10^3/uL
(0-0.05)
Absolute Neuts (auto) 10.6 H 10^3/uL
(1.4-6.5)
Immature Gran % 0.6 H %
(0-0.5)
Neutrophils % 83.8 H %
(42.2-75.2)
Lymphocytes % 10.4 L %
(20.5-51.1)
Carbon Dioxide 19 L mmol/L
(22-30)
Glucose 211 H mg/dl
(70-99)
Calcium 12.4 H mg/dl
(8.4-10.2)
Total Protein 8.5 H g/dl
(6.3-8.2)
Albumin 5.1 H g/dl
(3.5-5.0)
Urine Ketones Trace A
(Negative)
Ur Occult Blood Reflex 4+ A
(Negative)
Urine Nitrite (Reflex) Positive A
(Negative)
Urine Bilirubin 2+ A
(Negative)
Urine Urobilinogen 2+ A
(Neg - 1+)
Leukocyte Esterase Rfl 1+ A
(Negative)
Urine RBC >100 A /HPF
(0-2)
Urine Albumin (Reflex) 3+ A
(Neg - Trace)
03/01/24 12:23
03/01/24 12:23
Vital Signs
Initial and Last Documented VS:
Initial Vital Signs
Temp Pulse Resp BP Pulse Ox
37.4 C 131 18 137/98 97
03/01/24 12:13 03/01/24 12:13 03/01/24 12:13 03/01/24 12:13 03/01/24 12:13
Last Documented Vital Signs
Temp Pulse Resp BP Pulse Ox
37.4 C 94 18 136/78 99
03/01/24 12:13 03/01/24 17:44 03/01/24 17:44 03/01/24 17:44 03/01/24 17:44
<Tereza Narayan PA-C - Last Filed: 03/01/24 19:14>
MDM/Problems Addressed
Differential Diagnosis Includes:
Not limited to: Renal colic, UTI, pyelonephritis,
MDM/Problems Addressed:
53-year-old male presenting with worsening right flank pain in setting of recent right ureteral stent placement 5 days prior. Patient reports acute onset right flank/lower abdominal pain, hematuria, nausea/vomiting morning. Patient denies any
fever or chills. Patient currently on cefdinir following urine culture results from inpatient stay. Planning to follow-up with Dr. Hoover outpatient. Patient initially tachycardic although resolved by my assessment. He is afebrile with a temp of
98.6F. Patient is moderately uncomfortable although nontoxic. Abdomen is soft and nontender. No CVA tenderness. Patient is perfusing well. Labs were initiated in triage show mild leukocytosis of 12.6, otherwise no clinically significant
abnormalities. Hyperglycemia of 211 noted�patient is a diabetic. Will give the patient IV fluids, pain management, Zofran. Will check Noncon CT abdomen/pelvis. Will obtain UA and reassess.
Chronic conditions affecting care:
History of kidney stones s/p ureteral stent, Diabetes
Acute Exacerbation and/or Progression of Chronic Illness:
Acute hyperglycemia
<Tereza Narayan PA-C - Last Filed: 03/01/24 19:14>
*Radiology
Radiology exam reviewed: preliminary read by ED provider (9 mm renal pelvis stone) and radiology read reviewed
*Pulse Oximetry
Patient hypoxic: no
*EKG
Interpreted by ED Provider?: NA
*Blueprint Duplicator Interpretation
Rate: Blueprint Duplicator- N/A
*Critical Care Note
Total Time (30-74mins, 75-104mins- exclusive of procedures): Not Applicable
Data Reviewed
Review of Other/Old Records Reveals: Radiology Studies (8 mm obstructing stone noted on CT abdomen/pelvis 02/24/2024) and Operative Reports (Ureteral stent placement 02/25/2024)
Source: previous hospital records
<Tereza Narayan PA-C - Last Filed: 03/01/24 19:14>
Patient Management
Discussion with other providers: Machinist Supervisor Outside (Dr. Menjivar)
Escalation/DeEscalation of care consider admission/obs:
Discharge with close outpatient urology follow-up
<Tereza Narayan PA-C - Last Filed: 03/01/24 19:14>
Update Note
Update Note:
Update 2:56PM: Into reassess patient at bedside. Patient resting comfortably states pain is much improved from arrival to emergency department. Urine does show signs of significant RBCs. Urine is also positive for nitrate, 1+ leukocyte esterase.
Will discuss findings with urology pending CT.
Update 5:[address] report reviewed which was discussed with urology, Dr. Menjivar. Dr. Menjivar did review CT imaging which notes stent in adequate position with no indication for urgent urologic intervention. Urinalysis reviewed by urology which state
consistent following stent placement. CT noted with other chronic findings including umbilical hernia, cholelithiasis which I do not suspect to be related to symptoms. Patient is s/p appendectomy. Do suspect symptoms are secondary to renal colic
On reassessment�patient was reporting increase in pain. Offered patient admission to hospital for pain management versus discharge with at home pain control and urology follow-up. Will give patient dose of Toradol in emergency department and
reassess.
6:15 PM: On reassessment�patient prefers discharge home. Will provide pain control at home. Patient will follow closely with urology outpatient and contact Dr. Hoover in the morning. Return precautions discussed at length. Patient will complete
antibiotic course, continue Flomax, ibuprofen, oxycodone as needed. Patient seen with attending physician. Patient stable for discharge
ED Attending Note
<Cata Engel PA-C - Last Filed: 03/01/24 12:21>
-
Portions of this chart may have been created with voice recognition software.� Occasional wrong word or��sound alike� substitutions may have occurred due to the inherent limitations of voice recognition software.
<Hunter Lerma MD - Last Filed: 03/01/24 19:55>
ED Attending Note
Patient seen and examined by attending physician: Yes
ED Attending Note:
I have seen and evaluated the patient with a [id number] encounter. I have spoken to the advance practicer provider and involved in the medical history, the physical exam, medical decision making.
Evaluation and management service: agree unless noted differently below.
Results interpretation: agree unless noted differently below.
Focused HPI: 53-year-old male with past medical history as noted presents to the emergency room for evaluation of right lower quadrant abdominal pain. Patient was notably admitted to this hospital 02/24/2024 until 02/26/2024�he was admitted for
flank pain and obstructive kidney stone. He was seen by Dr. Hoover for urology and had ureteral stent placed. There was a question of urinary tract infection and he was discharged on antibiotics (cefdinir 300 mg twice daily total 14-day course).
He has had some soreness in the right lower abdomen since the stent but over the past few hours he has not had more sharp pain in the right lower abdomen. He also started to have some significant hematuria. Came to the ER for assessment. No
fevers or chills. While he has had hematuria he has not had any difficulty emptying his bladder. He has been compliant with all medications including antibiotics.
Physical exam: Awake alert not in distress. Vital signs notable for tachycardia in triage which resolved by my assessment. Abdomen soft, minimally tender right lower abdomen with no peritoneal signs or masses.
Medical Decision Makin-year-old male who is less than a week out from right ureteral stent placement for obstructive nephrolithiasis presents with right lower quadrant abdominal pain and hematuria. Vitals and exam as above. He is already on
antibiotics prophylactically. We sent labs which showed a leukocytosis, CMP showed hyperglycemia but no clinically significant abnormalities. Urinalysis was abnormal�CT showed stent in appropriate position, right renal pelvic calculus which
appears to be nonobstructive. Case reviewed with urology, these are expected symptoms status post stent placement. Recommended pain control and if pain is well-controlled can be discharged to continue antibiotic course and follow-up as an
outpatient.
Discharge Plan
Departure
Patient Disposition: Home (Routine Discharge)
Date of Disposition: 03/01/24
Time of Disposition: 18:44
Patient with high blood pressure during this ER visit?: Yes
Condition: Good
Covid-19: Not Applicable
Discharge Problem:
Renal colic on right side, Calculus of renal pelvis
Instructions: Kidney Stone, Adult ED, BLOOD PRESSURE
Prescriptions:
New
ondansetron 4 mg tablet,disintegrating
4 mg PO Q8H PRN (Reason: nausea and vomiting) Qty: 10 0RF
oxycodone 5 mg tablet
5 mg PO Q6H PRN (Reason: Pain) Qty: 7 0RF
No Action
atorvastatin 10 mg Tablet
10 mg PO QPM
aspirin 81 mg Tablet,Delayed Release (Dr/Ec)
81 mg PO QPM
metoprolol succinate 25 mg Tablet Extended Release 24 Hr
12.5 mg PO DAILY
metformin 500 mg Tablet Extended Release 24 Hr
1,000 mg PO BID
Rybelsus 14 mg Tablet
14 mg PO DAILY
tamsulosin 0.4 mg Capsule
0.4 mg PO DAILY 30 Days Qty: 30 0RF
phenazopyridine 100 mg Tablet
100 mg PO Q8 30 Days Qty: 90 0RF
cefdinir 300 mg capsule
300 mg PO BID 14 Days Qty: 28 0RF
Referrals:
Patricia Galvez MD [Family Provider] -
Piter Hoover Jr., MD [Active] - Next open appointment
Stand Alone Forms: Return to Work
Activity Restrictions/Additional Instructions:
RETURN TO THE EMERGENCY DEPARTMENT WITH ANY FEVERS, CHILLS, INTRACTABLE PAIN, INABILITY TO URINATE, INTRACTABLE NAUSEA/VOMITING, SEVERE BACK/ABDOMINAL PAIN, WORSENING IN CURRENT SYMPTOMS, OR ANY OTHER CONCERNS
-As discussed�it is important that you follow-up with your urologist, Dr. Hoover as soon as possible for definitive management of your kidney stone.
-It is very important that you complete your course of antibiotics as prescribed by the urologist.
-You should continue to take ibuprofen 600 mg every 6-8 hours as needed for pain management. You can take Tylenol, in addition as needed. A prescription for oxycodone has been sent to your pharmacy. You can take this up to every 6 hours as needed
for severe pain. This may cause drowsiness you should not take prior to driving. Continue to take your Flomax, tamsulosin as prescribed. You can take Zofran up to every 8 hours as needed for persistent nausea/vomit
-Strain your urine. Stay well-hydrated
Monitor your symptoms closely and to the emergency department with any acute worsening/new symptoms
Interventions
Interventions:
*Risk Screen - Suicide Last Done: 03/01/24 12:13
*General Assessment Last Done: 03/01/24 12:13
*Neglect/Abuse Screening Last Done: 03/01/24 12:13
ED- Fall Risk Assessment Last Done: 03/01/24 18:57
*ED COVID-19 Vaccine History Last Done: 03/01/24 12:13
*Nursing Disposition Last Done: 03/01/24 18:57
ED-Male Genitourinary Assessment Last Done: 03/01/24 14:48
Discharge Date and Time
Discharge Date/Time: 03/01/24 18:57
Print Language: SLOVENIAN
[2024-03-01 12:41] LABS: % Basophils 0.4 % (0-2); % Eosinophils 0.2 % (0-6); % Immature Granulocytes 0.6 % (0-0.5); % Lymphocytes 10.4 % (20.5-51.1); % Monocytes 4.6 % (1.7-9.3); % Neutrophils 83.8 % (42.2-75.2); Absolute Basophils 0.1 10^3/uL (0-0.2); Absolute Immature Granulocytes 0.1 10^3/uL (0-0.05); Absolute Lymphocytes 1.3 10^3/uL (1.2-3.4); Absolute Monocytes 0.6 10^3/uL (0.1-0.6); Absolute Neutrophils 10.6 10^3/uL (1.4-6.5); Hematocrit 46.4 % (39.0-52.0); Hemoglobin 16.1 g/dL (13.0-18.0); Mean Corp Hgb Conc. 34.7 g/dL (33.0-37.0); Mean Corpuscular Hgb 29.4 pg (27.0-31.0); Mean Corpuscular Volume 84.7 fL (80.0-94.0); Mean Platelet Volume 9.3 fL (7.4-10.4); Nucleated Red Blood Cells % 0 % (-); Platelet Count 330 10^3/uL (130-400); Red Blood Cell Count 5.48 10^6/uL (4.70-6.10); Red Cell Dist. Width 13.7 % (11.5-14.5); White Blood Cell Count 12.6 10^3/uL (4.8-10.8)
[2024-03-01 12:58] LABS: ALT (SGPT) 42 U/L (0-50); AST (SGOT) 26 U/L (17-59); Albumin 5.1 g/dl (3.5-5.0); Alkaline Phosphatase 103 U/L (38-126); Blood Urea Nitrogen 18 mg/dl (9-20); Calcium 12.4 mg/dl (8.4-10.2); Carbon Dioxide 19 mmol/L (22-30); Chloride 103 mmol/L (98-107); Glucose 211 mg/dl (70-99); Potassium 5.1 mmol/L (3.5-5.1); Sodium 140 mmol/L (135-145); Total Bilirubin 1.1 mg/dl (0.2-1.3); Total Protein 8.5 g/dl (6.3-8.2); eGFR > 60.00
[2024-03-01 13:38] VITALS: BMI 46.8
[2024-03-01] MEDS: ZOFRAN 4 MG IV (13:58)
[2024-03-01] MEDS: DILAUDID 0.5 MG IV (13:58)
[2024-03-01] MEDS: NSS 1000 IV (13:59)
[2024-03-01 14:32] LABS: Urine Albumin 3+ (Neg - Trace); Urine Bilirubin 2+ (Negative); Urine Character Very Cloudy (Clear); Urine Color Brown; Urine Glucose Negative (Negative); Urine Ketone Trace (Negative); Urine Leukocyte 1+ (Negative); Urine Nitrite Positive (Negative); Urine Occult Blood 4+ (Negative); Urine Specific Gravity 1.025 (<1.030); Urine Urobilinogen 2+ (Neg - 1+); Urine pH 6.5 (5.0-9.0)
[2024-03-01 15:09] LABS: Urine Red Blood Cell >100 /HPF (0-2)
[2024-03-01 15:10] LABS: Urine Squamous Cell >30 /LPF (Few)
[2024-03-01] MEDS: TORADOL 15 MG IV (17:41)
[2024-03-01 17:44] VITALS: BP 136/78
== END 2024-03-01 18:57 | disposition home or self-care (01) ==
LOC: EMR 12:09
PROVIDERS: Physician Assistant; EMERGENCY PHYSICIAN Emergency Medicine; FAMILY PHYSICIAN Emergency Medicine
DX: N20.0 Calculus of kidney (principal); E11.65 Type 2 diabetes mellitus with hyperglycemia; Z79.2 Long term (current) use of antibiotics; Z90.49 Acquired absence of other specified parts of digestive tract
CPT/HCPCS: 99284; 96375; 96374; 96361; 74176; 80053; 81003; 81015; 85025; 87086

== ENCOUNTER 2024-03-10 05:46 | Day surgery (SDC) | payer BC, SELFPAY ==
[2024-03-10] VITALS (7 sets, daily range): BP systolic 109–145; BP diastolic 70–95; BMI 46.2
[2024-03-10 06:52] LABS: Glucose - Point of Care 120 mg/dl (70-99)
[2024-03-10 08:49] LABS: Glucose - Point of Care 99 mg/dl (70-99)
[2024-03-14 18:29] LABS: Stone Analysis Mass 24 mg
== END 2024-03-10 10:45 | disposition home or self-care (01) ==
LOC: SDS 05:46
PROVIDERS: ATTENDING PHYSICIAN Specialist; FAMILY PHYSICIAN Emergency Medicine
DX: N20.0 Calculus of kidney (principal)
CPT/HCPCS: 52356; 74018; 76000; 82365; 82962; 93005; C1894; C2617

== ENCOUNTER → 2024-03-28 07:12 | Outpatient (REF) | payer BC, SELFPAY ==
[2024-03-28 08:13] LABS: Ionized Calcium 1.44 mMOL/L (1.15-1.33)
[2024-03-28 08:52] LABS: Urine Calcium 17.3 mg/dl
[2024-03-28 08:54] LABS: 24 Hour Urine Calcium 501.7 mg/day; 24 Hour Urine Creatinine 1.951 gm/day (1.0-2.0); 24 Hour Urine Total Volume 2900 ml
[2024-03-28 08:59] LABS: ALT (SGPT) 24 U/L (0-50); AST (SGOT) 17 U/L (17-59); Albumin 4.2 g/dl (3.5-5.0); Alkaline Phosphatase 82 U/L (38-126); Blood Urea Nitrogen 15 mg/dl (9-20); Calcium 11.1 mg/dl (8.4-10.2); Carbon Dioxide 19 mmol/L (22-30); Chloride 107 mmol/L (98-107); Glucose 141 mg/dl (70-99); Potassium 4.7 mmol/L (3.5-5.1); Total Bilirubin 0.4 mg/dl (0.2-1.3); Total Protein 7.4 g/dl (6.3-8.2); eGFR > 60.00
[2024-03-28 09:03] LABS: Sodium 139 mmol/L (135-145)
[2024-03-28 09:16] LABS: Vitamin D, 25-OH*** 23.9 ng/mL (30-80)
[2024-03-29 08:53] LABS: Intact PTH 100.7 pg/ml (13.6-85.8)
== END ==
LOC: REG 07:12
PROVIDERS: ATTENDING PHYSICIAN Physician Assistant
DX: E83.52 Hypercalcemia (principal); E34.9 Endocrine disorder, unspecified; E55.9 Vitamin D deficiency, unspecified
CPT/HCPCS: 36415; 80053; 81050; 82306; 82330; 82340; 82570; 83970

== ENCOUNTER → 2024-05-16 09:39 | Outpatient (REF) | payer BC, SELFPAY ==
[2024-05-16 11:54] LABS: Urine Albumin Trace (Neg - Trace); Urine Bilirubin Negative (Negative); Urine Character Clear (Clear); Urine Color Yellow; Urine Glucose Trace (Negative); Urine Ketone Negative (Negative); Urine Leukocyte Negative (Negative); Urine Nitrite Negative (Negative); Urine Occult Blood Negative (Negative); Urine Urobilinogen Negative (Neg - 1+)
== END ==
LOC: HWLAB 09:39
PROVIDERS: ATTENDING PHYSICIAN Specialist; FAMILY PHYSICIAN Emergency Medicine
DX: N30.00 Acute cystitis without hematuria (principal)
CPT/HCPCS: 81003; 87086

== ENCOUNTER 2024-06-07 06:13 | Day surgery (SDC) | payer BC, SELFPAY ==
[2024-05-30 08:37] LABS: Hematocrit 40.9 % (39.0-52.0); Hemoglobin 13.7 g/dL (13.0-18.0); Mean Corp Hgb Conc. 33.5 g/dL (33.0-37.0); Mean Corpuscular Hgb 29.9 pg (27.0-31.0); Mean Corpuscular Volume 89.3 fL (80.0-94.0); Mean Platelet Volume 10.1 fL (7.4-10.4); Platelet Count 235 10^3/uL (130-400); Red Blood Cell Count 4.58 10^6/uL (4.70-6.10); Red Cell Dist. Width 13.9 % (11.5-14.5); White Blood Cell Count 7.5 10^3/uL (4.8-10.8)
[2024-05-30 08:49] LABS: INR 0.94; PT 12.9 Sec (11.4-14.6)
[2024-05-30 08:50] LABS: APTT 26.7 Sec (23.4-35.0)
[2024-05-30 09:08] LABS: ALT (SGPT) 29 U/L (0-50); AST (SGOT) 21 U/L (17-59); Albumin 4.4 g/dl (3.5-5.0); Alkaline Phosphatase 79 U/L (38-126); Blood Urea Nitrogen 14 mg/dl (9-20); Calcium 10.5 mg/dl (8.4-10.2); Carbon Dioxide 21 mmol/L (22-30); Chloride 104 mmol/L (98-107); Glucose 153 mg/dl (70-99); Potassium 4.6 mmol/L (3.5-5.1); Sodium 137 mmol/L (135-145); Total Bilirubin 0.4 mg/dl (0.2-1.3); Total Protein 7.7 g/dl (6.3-8.2); eGFR > 60.00
[2024-05-30 13:36] VITALS: BMI 44.6
--- NOTE | 2024-06-02 15:24 | PTCARENOTE ---
Patient states he has 'the sniffles' encouraged to notify surgeon if symptoms worsen, he develops fever or if he has any concerns/questions. Pt said he understands and agrees with plan.
[2024-06-07] VITALS (11 sets, daily range): BP systolic 113–145; BP diastolic 64–89; BMI 44.6
[2024-06-07 08:55] LABS: Glucose - Point of Care 137 mg/dl (70-99)
[2024-06-07] MEDS: NEURONTIN 300 MG PO (09:01)
[2024-06-07] MEDS: TYLENOL 1000 MG PO (09:01)
[2024-06-07] MEDS: HEPARIN 5000 UNITS SC (09:01)
[2024-06-07] MEDS: NORMOSOL-R/PLASMALYTE-A 1000 IV (09:02)
[2024-06-07 10:42] LABS: Turbo PTH 99.5 pg/ml (13.6-85.8)
--- NOTE | 2024-06-07 11:10 | OR.RPT ---
Operative Report
Operative Report
Date of Operation: June 07, 2024
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
Postoperative Diagnosis: Same
Surgeon: Arnaldo Wray M.D.
Operation: Minimally Invasive Inferior Parathyroidectomy - 10501
Anesthesia: GET
Estimated Blood Loss: 2 cc
Drains: None
Specimen: �right inferior neck nodule, rule out parathyroid adenoma
Complications: �None
Procedure:
The patient was taken to the operating room and placed in the usual supine position. After adequate general endotracheal anesthesia was established, the patient's neck was extended, prepped, and draped in the typical sterile fashion. A 4 cm
transcervical incision was made two fingerbreadths above the sternal notch. The skin incision was made with the #15 blade, and this was taken through the skin into the subcutaneous tissue. The underlying platysma muscle was divided, and subplatysmal
flaps were created superiorly to the thyroid cartilage and inferiorly to the sternal notch. Strap muscles were identified and at the midline.
Attention was turned to the patient's right side of the neck. The right thyroid lobe was mobilized medially. During this process, the right recurrent laryngeal nerve was identified and preserved throughout the surgery. The right lower neck nodule
was identified and noted to be enlarged, excised, and sent to the pathology department, which showed a hypercellular parathyroid gland. The intraoperative PTH levels normalized.
After obtaining adequate hemostasis, the strap muscles were reapproximated with #3-0 Vicryl in a running fashion. The platysma muscle was reapproximated with #3-0 Vicryl in an interrupted fashion, and the skin was approximated with #4-0 Monocryl in
a running subcuticular fashion. The Steri-Strips and sterile dressings were placed. The patient tolerated the procedure well. The final instrument, needle, and sponge counts were correct. The patient was extubated and transferred to the PACU.
[2024-06-07 11:32] LABS: Turbo PTH 29.2 pg/ml (13.6-85.8)
[2024-06-07 12:38] LABS: Glucose - Point of Care 171 mg/dl (70-99)
== END 2024-06-07 13:29 | disposition home or self-care (01) ==
LOC: SDS 06:13
PROVIDERS: ATTENDING PHYSICIAN Surgery; FAMILY PHYSICIAN Emergency Medicine
PROC: 0GBN0ZZ Excision of Right Inferior Parathyroid Gland, Open Approach (ICD-10-PCS; 2024-06-07)
DX: E21.0 Primary hyperparathyroidism (principal); D35.1 Benign neoplasm of parathyroid gland
CPT/HCPCS: 60500; 88305; 88332; 36415; 80053; 82962; 83970; 85027; 85610; 85730; 88331; 93005

== ENCOUNTER → 2024-06-21 06:15 | Outpatient (REF) | payer BC, SELFPAY ==
[2024-06-21 10:18] LABS: ALT (SGPT) 28 U/L (0-50); AST (SGOT) 20 U/L (17-59); Alkaline Phosphatase 85 U/L (38-126); Calcium 9.4 mg/dl (8.4-10.2); Carbon Dioxide 21 mmol/L (22-30); Chloride 104 mmol/L (98-107); Creatine Phosphokinase 69 U/L (55-170); Glucose 153 mg/dl (70-99); HDL Cholesterol 48 mg/dl; LDL Cholesterol, Calculated 47 mg/dl; Potassium 4.7 mmol/L (3.5-5.1); Sodium 140 mmol/L (135-145); Total Bilirubin 0.8 mg/dl (0.2-1.3); Total Cholesterol 123 mg/dl (50-199); Total Protein 8.6 g/dl (6.3-8.2); Triglyceride 142 mg/dl (10-149); Very Low Density Lipoprotein 28 mg/dl (0-30); eGFR > 60.00
[2024-06-21 10:27] LABS: Blood Urea Nitrogen 14 mg/dl (9-20)
== END ==
LOC: HWLAB 06:15
PROVIDERS: ATTENDING PHYSICIAN Internal Medicine Cardiovascular Disease; FAMILY PHYSICIAN Emergency Medicine
DX: E11.9 Type 2 diabetes mellitus without complications (principal); R00.0 Tachycardia, unspecified; I77.810 Thoracic aortic ectasia; G47.33 Obstructive sleep apnea (adult) (pediatric); Z86.711 Personal history of pulmonary embolism
CPT/HCPCS: 36415; 80053; 80061; 82550

== ENCOUNTER → 2024-07-09 08:22 | Outpatient (REF) | payer BC, SELFPAY ==
[2024-07-09 09:46] LABS: Ionized Calcium 1.14 mMOL/L (1.15-1.33)
[2024-07-09 10:17] LABS: ALT (SGPT) 29 U/L (0-50); AST (SGOT) 19 U/L (17-59); Albumin 4.3 g/dl (3.5-5.0); Alkaline Phosphatase 81 U/L (38-126); Blood Urea Nitrogen 13 mg/dl (9-20); Calcium 9.4 mg/dl (8.4-10.2); Carbon Dioxide 27 mmol/L (22-30); Chloride 106 mmol/L (98-107); Glucose 110 mg/dl (70-99); Sodium 141 mmol/L (135-145); Total Bilirubin 0.6 mg/dl (0.2-1.3); Total Protein 7.6 g/dl (6.3-8.2); eGFR > 60.00
[2024-07-09 10:29] LABS: Free T4 0.85 ng/dl (0.78-2.19)
[2024-07-09 10:43] LABS: TSH 1.31 uIU/ml (0.47-4.68)
[2024-07-09 10:50] LABS: Intact PTH 71.8 pg/ml (13.6-85.8)
== END ==
LOC: REG 08:22
PROVIDERS: ATTENDING PHYSICIAN Physician Assistant; FAMILY PHYSICIAN Emergency Medicine
DX: E83.52 Hypercalcemia (principal); E34.9 Endocrine disorder, unspecified
CPT/HCPCS: 36415; 80053; 82330; 83970; 84439; 84443

== ENCOUNTER → 2024-07-11 06:42 | Outpatient (REF) | payer BC, SELFPAY ==
[2024-07-11 09:36] LABS: Urine Calcium 11.6 mg/dl
[2024-07-11 09:37] LABS: 24 Hour Urine Creatinine 1.533 gm/day (1.0-2.0); 24 Hour Urine Total Volume 3000 ml
== END ==
LOC: REG 06:42
PROVIDERS: ATTENDING PHYSICIAN Physician Assistant; FAMILY PHYSICIAN Emergency Medicine
DX: E83.52 Hypercalcemia (principal)
CPT/HCPCS: 81050; 82340; 82570

== ENCOUNTER → 2024-10-29 07:28 | Outpatient (REF) | payer BC, SELFPAY ==
[2024-10-29 08:40] LABS: Urine Albumin Negative (Neg - Trace); Urine Bilirubin Negative (Negative); Urine Character Clear (Clear); Urine Color Yellow; Urine Glucose Negative (Negative); Urine Ketone Negative (Negative); Urine Leukocyte Negative (Negative); Urine Nitrite Negative (Negative); Urine Occult Blood Negative (Negative); Urine Urobilinogen Negative (Neg - 1+); Urine pH 6.5 (5.0-9.0)
== END ==
LOC: REG 07:28
PROVIDERS: ATTENDING PHYSICIAN Specialist; FAMILY PHYSICIAN Emergency Medicine
DX: N30.00 Acute cystitis without hematuria (principal); N20.0 Calculus of kidney
CPT/HCPCS: 74018; 81003; 87086

== ENCOUNTER → 2025-01-14 07:58 | Outpatient (REF) | payer BC, SELFPAY ==
[2025-01-14 09:04] LABS: ALT (SGPT) 29 U/L (0-50); AST (SGOT) 19 U/L (17-59); Albumin 4.3 g/dl (3.5-5.0); Alkaline Phosphatase 61 U/L (38-126); Blood Urea Nitrogen 16 mg/dl (9-20); Calcium 8.7 mg/dl (8.4-10.2); Carbon Dioxide 25 mmol/L (22-30); Chloride 107 mmol/L (98-107); Glucose 150 mg/dl (70-99); Potassium 4.6 mmol/L (3.5-5.1); Sodium 137 mmol/L (135-145); Total Protein 7.2 g/dl (6.3-8.2); eGFR > 60.00
[2025-01-14 09:15] LABS: Vitamin D, 25-OH*** 23.4 ng/mL (30-80)
[2025-01-14 09:28] LABS: TSH 1.30 uIU/ml (0.47-4.68)
== END ==
LOC: REG 07:58
PROVIDERS: ATTENDING PHYSICIAN Physician Assistant; FAMILY PHYSICIAN Emergency Medicine
DX: E83.52 Hypercalcemia (principal); E21.0 Primary hyperparathyroidism; E55.9 Vitamin D deficiency, unspecified
CPT/HCPCS: 36415; 80053; 82306; 82330; 83970; 84439; 84443

== ENCOUNTER → 2025-01-17 06:54 | Outpatient (REF) | payer BC, SELFPAY ==
[2025-01-17 08:27] LABS: 24 Hour Urine Total Volume 2900 ml
== END ==
LOC: REG 06:54
PROVIDERS: ATTENDING PHYSICIAN Physician Assistant; FAMILY PHYSICIAN Emergency Medicine
DX: E83.52 Hypercalcemia (principal); E21.0 Primary hyperparathyroidism; E55.9 Vitamin D deficiency, unspecified
CPT/HCPCS: 81050; 82340; 82570

== ENCOUNTER 2025-02-23 08:07 | Emergency (ER) | payer SELFPAY ==
[2025-02-23 08:10] VITALS: BP 163/104
--- NOTE | 2025-02-23 08:18 | ED.GENMED ---
History of Present Illness
General
Chief Complaint: Skin Surface Trauma
Time Seen by Provider: 02/23/25 08:18
History of Present Illness
History of Present Illness:
FOCUSED PAST MEDICAL HISTORY
- Has had PE, diabetes
REVIEW OF OLD RECORDS
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
Note:
CHIEF COMPLAINT(S)
Laceration and tissue injury to the left index finger.
HISTORY OF PRESENT ILLNESS
The patient is a 54-year-old male who presented with an injury to his left index finger sustained while operating machinery. The incident occurred when the patient was adjusting a piece of equipment that involves a cutter and gears. Although the
machine was not fully engaged, the patients finger was caught between a piece and the cutter, resulting in a laceration. He describes experiencing a strange burning sensation and warmth in the affected area. The injury involves loss of tissue at the
base of the fingernail and a cut through the nail itself.
PHYSICAL EXAM
-General: Well appearing but appears somewhat uncomfortable
-HEENT: Moist oral mucosa
-Neurologic: Excellent strength all extremities, no obvious coordination deficits
-Psychiatric: Appropriate mental status, normal insight and judgement
-Extremities: There is a laceration to the distal aspect of the left index finger consistent with partial amputation and significant soft tissue defect, the laceration goes through the nailbed. There is marked soft tissue loss of the tissue dorsal
to the distal phalanx of the affected digit
-Skin: As above
PROBLEM LIST
Acute Problem:
- Laceration and tissue loss of the left index finger with associated nail injury.
PLAN
1. Administration of local anesthesia to the base of the left index finger for pain management.
2. Evaluation and possible removal of the affected fingernail.
3. Further treatment to address tissue injury as necessary after examination under anesthetized conditions.
DIFFERENTIAL DIAGNOSIS
The Differential Diagnosis includes, in no particular order and is not limited to:
- Fingertip trauma
- Nail bed laceration
- Partial fingertip amputation
- Nail avulsion
- Distal phalanx fracture
- Soft tissue infection
- Peripheral nerve injury
- Vascular injury
- Complex fingertip injury
- Crush injury to the finger
RADIOLOGY
- Comminuted distal phalanx fracture
SUMMARY OF ENCOUNTER
The patient, a 54-year-old male, suffered a laceration and tissue injury to the left index finger while operating machinery. The patient was seen in the emergency department for evaluation and management of the injury. The wound was copiously
irrigated, with debridement of some tissue. A partial amputation was noted, necessitating stitching; deep Vicryl stitches and nylon stitches were applied. The affected nail was removed. Communication with orthopedics was made to arrange close
outpatient follow-up.
DISPOSITION
Discharge with outpatient follow-up arranged with orthopedics.
PLAN
1. Start antibiotic therapy to prevent infection. Tetanus shot.
2. Close follow-up with orthopedics has been arranged for further evaluation and management.
PROCEDURES
1. Wound irrigation.
2. Debridement of tissue.
3. Application of deep Vicryl and nylon stitches.
4. Nail removal.
MEDICAL DECISION MAKING
-Complexity of Data Reviewed:
Acute problem with left index finger. Differential diagnosis includes:
- Fingertip trauma
- Nail bed laceration
- Partial fingertip amputation
- Nail avulsion
- Distal phalanx fracture
- Soft tissue infection
- Peripheral nerve injury
- Vascular injury
- Complex fingertip injury
- Crush injury to the finger
Category 3: Communication with Dr. Santillan from orthopedics regarding follow-up care.
DIAGNOSIS
- Partial Fingertip Amputation, Left Index Finger [U78.212]
- Laceration and Tissue Injury of Left Index Finger [S67.627]
- Nailbed injury
Past History
Past History
ED Past Medical History: Other (Pre Diabetic, Plantar fasciitis, Bone spurs)
ED Past Surgical History: Appendectomy
Social History
Tobacco: Non-smoker
Alcohol: None
Personal:
Living: with family
Phy Exam
Physical Exam
Physical Exam:
See HPI
Course
Orders/Labs/Results
Orders:
Orders
02/23/25 08:31
CR Finger(s)/thumb Min 2 Vw Lt Urgent
Comment:
Reason For Exam: trauma L 2nd digit
02/23/25 08:44
Cephalexin Monohydrate [Keflex] 500 mg PO NOW STA
02/23/25 09:24
Tetanus/Diphth/Acelpertussis [Adacel] 0.5 ml IM .ONCE ONE
Vital Signs
Initial and Last Documented VS:
Initial Vital Signs
Temp Pulse Resp BP Pulse Ox
37.2 C 91 20 163/104 99
02/23/25 08:10 02/23/25 08:10 02/23/25 08:10 02/23/25 08:10 02/23/25 08:10
Last Documented Vital Signs
Temp Pulse Resp BP Pulse Ox
37.2 C 91 20 163/104 99
02/23/25 08:10 02/23/25 08:10 02/23/25 08:10 02/23/25 08:10 02/23/25 08:19
Procedures
Laceration Closure
Left Distal Second Finger:
Status of Wound: clean
Size of Wound in cm: 3
Description of Wound Edges: ragged and flap-poorly vascularized
Preparation: cleaned with saline
Anesthesia: 1% Lidocaine and Digital-Regional
Revision/Debridement: routine- no revision
Wound exploration: extensive cleaning of contaminated wound and explored to base- no FB
Type of Closure: layered closure (I used vicryl for the subcutaneous tissue/muscle layer and Ethilon for the skin)
Skin Closure Material: 4-0 nylon and 4-0 vicryl
Number of sutures: 6
Additional information:
I removed some nonviable tissue and removed the nail
*Pulse Oximetry
SaO2: 99
Oxygen Mode of Delivery: Room air
Patient hypoxic: no
*Critical Care Note
Total Time (30-74mins, 75-104mins- exclusive of procedures): Not Applicable
ED Attending Note
-
Portions of this chart may have been created with voice recognition software.� Occasional wrong word or��sound alike� substitutions may have occurred due to the inherent limitations of voice recognition software.
Discharge Plan
Departure
Patient Disposition: Home (Routine Discharge)
Date of Disposition: 02/23/25
Time of Disposition: 09:15
Patient with high blood pressure during this ER visit?: Yes
Discharge Problem:
Partial traumatic amputation of finger through phalanx, Open finger fracture
Instructions: Common Finger Injuries ED
Prescriptions:
New
cephalexin 500 mg tablet
500 mg PO TID Qty: 15 0RF
No Action
aspirin 81 mg Tablet,Delayed Release (Dr/Ec)
81 mg PO QPM
metformin 500 mg Tablet Extended Release 24 Hr
1,000 mg PO BID
Rybelsus 14 mg Tablet
14 mg PO DAILY
atorvastatin 10 mg Tablet
10 mg PO QPM
acetaminophen 500 mg Tablet
1,000 mg PO Q6H PRN (Reason: pain)
Referrals:
Patricia Galvez MD [Family Provider, Internal Medicine]
James Gordon MD [Active, Orthopedics]
Activity Restrictions/Additional Instructions:
I recommend [id number] Tylenol and/or Motrin for pain. I sent a prescription for Keflex to your pharmacy to help prevent infection. Follow-up with Dr. Gordon's group. I placed several deep stitches (white) as well as some sutures to the skin
(black). The black stitches will need to be removed in the next 7 to [address] Gordon or your primary care doctor. I notified Dr. Gordon and he said that he will forward to their automation manager to help facilitate close outpatient follow-up.
Interventions
Interventions:
*Risk Screen - Suicide Last Done: 02/23/25 08:10
*General Assessment Last Done: 02/23/25 09:37
*Neglect/Abuse Screening Last Done: 02/23/25 09:37
*ED- Fall Risk Assessment Last Done: 02/23/25 09:37
*ED COVID-19 Vaccine History Last Done: 02/23/25 09:37
*ED Influenza Vaccine History Last Done: 02/23/25 09:37
*Nursing Disposition Last Done: 02/23/25 09:37
ED-Skin Assessment Last Done: 02/23/25 09:34
Discharge Date and Time
Discharge Date/Time: 02/23/25 09:38
Print Language: NIGERIEN
[2025-02-23] MEDS: KEFLEX 500 MG PO (08:51)
[2025-02-23] MEDS: ADACEL 0.5 ML IM (09:29)
== END 2025-02-23 09:38 | disposition home or self-care (01) ==
LOC: EMR 08:07
PROVIDERS: EMERGENCY PHYSICIAN Emergency Medicine; FAMILY PHYSICIAN Emergency Medicine
DX: S68.621A Partial traumatic transphalangeal amputation of left index finger, initial encounter (principal); W31.89XA Contact with other specified machinery, initial encounter; E11.9 Type 2 diabetes mellitus without complications
CPT/HCPCS: 13121; 90471; 99283; 73140; 90715

== ENCOUNTER → 2025-04-10 06:39 | Outpatient (REF) | payer BC, SELFPAY ==
[2025-04-10 08:05] LABS: Blood Urea Nitrogen 12 mg/dl (9-20); Calcium 9.2 mg/dl (8.4-10.2); Carbon Dioxide 24 mmol/L (22-30); Chloride 105 mmol/L (98-107); Glucose 187 mg/dl (70-99); HDL Cholesterol 46 mg/dl; LDL Cholesterol, Calculated 49 mg/dl; Potassium 4.6 mmol/L (3.5-5.1); Sodium 138 mmol/L (135-145); Very Low Density Lipoprotein 30 mg/dl (0-30); eGFR > 60.00
[2025-04-10 08:21] LABS: Hematocrit 42.4 % (39.0-52.0); Hemoglobin 13.9 g/dL (13.0-18.0); Mean Corp Hgb Conc. 32.8 g/dL (33.0-37.0); Mean Corpuscular Volume 90.6 fL (80.0-94.0); Nucleated Red Blood Cells % 0 % (-); Red Cell Dist. Width 13.6 % (11.5-14.5)
[2025-04-10 08:33] LABS: Microalbumin, Random Urine 1.2 mg/dl (0.6-1.7)
[2025-04-10 08:33] LABS: PSA, Total - Screen 0.64 ng/ml (0.0-4.0)
[2025-04-10 08:42] LABS: Vitamin D, 25-OH*** 32.5 ng/mL (30-80)
[2025-04-10 09:46] LABS: Glycohemoglobin (HgbA1c) 8.7 % (4.0-5.9)
[2025-04-10 10:43] LABS: Platelet Count 240 10^3/uL (130-400)
== END ==
LOC: REG 06:39
PROVIDERS: FAMILY PHYSICIAN Emergency Medicine
DX: E11.59 Type 2 diabetes mellitus with other circulatory complications (principal); Z12.5 Encounter for screening for malignant neoplasm of prostate; E78.5 Hyperlipidemia, unspecified
CPT/HCPCS: 36415; 80048; 80061; 82043; 82306; 82570; 83036; 85025; G0103